=== PATIENT | male | born 1935 | race African-American/Black ===

== ENCOUNTER 2017-06-08 07:36 | Observation (INO) | payer OTHER ==
[2017-06-08] MEDS ORDERED: SODIUM CHLORIDE 500 ML IV STA ×2 (08:07→09:06)
--- NOTE | 2017-06-08 08:21 | PDOC ---
History of Present Illness - General Chief Complaint: Blood Pressure Problem Stated Complaint: LOW BLOOD PRESSURE/VOMITING X2 DAYS Time Seen by Provider: 06/08/17 07:46 History Source: Patient - History of Present Illness Timing/Duration: other (yesterday) Associated Symptoms: reports: nausea/vomiting. denies: chest pain, diaphoresis , fever/chills, headaches, shortness of breath, weakness Past History - Past Medical History Allergies/Adverse Reactions: Allergies Allergy/AdvReac Type Severity Reaction Status Date / Time No Known Allergies Allergy Verified 06/08/17 07:49 Home Medications: Ambulatory Orders Aspirin Coated [Ecotrin -] 81 mg PO DAILY #0 tablet.ec 06/11/11 Atorvastatin Ca [Lipitor] 20 mg PO DAILY #0 tablet 06/11/11 Cholecalciferol (Vitamin D3) [Vitamin D -] 1,000 units PO DAILY #0 tablet Cyanocobalamin [Vitamin B12 -] 1,000 mcg PO DAILY #0 tablet 06/11/11 Metoprolol Succinate [Toprol XL -] 25 mg PO DAILY 08/29/11 Clopidogrel Bisulfate [Plavix -] 75 mg PO DAILY 10/03/14 Ferrous Sulfate [Feosol] 325 mg PO DAILY 10/03/14 Levothyroxine [Synthroid -] 137 mcg PO DAILY 10/03/14 Amlodipine Besylate [Norvasc -] 2.5 mg PO DAILY 05/29/15 Ascorbic Acid [Vitamin C] 500 mg PO DAILY 05/29/15 Ranitidine [Zantac -] 150 mg PO DAILY 05/30/15 Anemia: Yes Asthma: No Cancer: Yes (larynx, esophageal in remission, removal of voice box) Cardiac Disorders: Yes (cardiac stent, cad) CVA: No COPD: No Dementia: No Diabetes: Yes (niddm) Dialysis: No GI Disorders: Yes (gerd, diverticulosis,colonic polyps) Disorders: No HTN: Yes Hypercholesterolemia: Yes Kidney Stones: No Liver Disease: No Seizures: No Thyroid Disease: Yes (hypothyroid) - Surgical History Abdominal Surgery: No Appendectomy: Yes Cardiac Surgery: Yes Cholecystectomy: No Lung Surgery: No Neurologic Surgery: No Orthopedic Surgery: No - Immunization History Immunization Up to Date: Yes - Suicide/Smoking/Psychosocial Hx Smoking Status: Yes Smoking History: Never smoked Years of Tobacco Use: 30 Have you smoked in the past 12 months: No Number of Cigarettes Smoked Daily: 0 If you are a former smoker, when did you quit?: 1998 Cigars Per Day: 0 Information on smoking cessation initiated: No Hx Alcohol Use: No Drug/Substance Use Hx: No Substance Use Type: None Hx Substance Use Treatment: No Review of Systems - Review of Systems Constitutional: No: Chills, Fever Respiratory: No: Cough, Shortness of Breath Cardiac (ROS): Yes: Lightheadedness. No: Chest Pain, Palpitations, Syncope ABD/GI: Yes: Nausea, Vomiting. No: Blood Streaked Bowels, Constipated, Diarrhea , Rectal Bleeding, Abdominal cramping, Tarry Stools : No: Dysuria Neurological: No: Headache *Physical Exam - Vital Signs Last Vital Signs Temp Pulse Resp BP Pulse Ox 98.8 F 89 18 91/77 98 06/08/17 07:46 06/08/17 07:46 06/08/17 07:46 06/08/17 07:46 06/08/17 07:52 - Physical Exam General Appearance: Yes: Appropriately Dressed. No: Apparent Distress HEENT: positive: Other (speaks w/ voice box) Neck: positive: Supple Respiratory/Chest: positive: Lungs Clear, Normal Breath Sounds. negative: Respiratory Distress Cardiovascular: positive: Regular Rate, S1, S2 Gastrointestinal/Abdominal: positive: Soft. negative: Tender Musculoskeletal: negative: CVA Tenderness Integumentary: positive: Dry, Warm Neurologic: positive: Fully Oriented, Alert, Normal Mood/Affect ED Treatment Course - LABORATORY CBC & Chemistry Diagram: 06/08/17 08:10 06/08/17 08:10 Medical Decision Making - Medical Decision Making 06/08/17 08:11 81-year-old male history of laryngeal cancer (in remission, still stoma breathing), HTN, HLD, DM, coronary artery disease, hypothyroid, anemia, GI bleed with negative radionucleotide GI bleed scan in 2011, here nausea, vomiting. Patient states he had 2 episodes of non-bloody, non-bilious vomitus last night. Collins dizzy this am and called 911. No diarrhea, BRBPR, melena, abdominal pain, fever or chills. Denies CP, SOB, diaphoresis, WONG, blurry vision or focal weakness. Patient states he has no teeth and does not wear dentures so baseline diet is soft foods only. Pt states he thinks he " swallowed too much food" last night and thinks that's what's causing his sxs. See exam Hypotension in setting of n/v R/o cardiac vs GI vs infectious vs metabolic, unlikely neuro BP 90/70s in ED, stable otherwise and well ashleigh w/ clear chest/lungs and benign abd -IVF -ekg -labs -reassess 06/08/17 11:38 Labs unremarkable except for leukopenia to 1.9 (last wbc on record here was 2.9 in 2014). No fevers. Blood pressure improved to 104/90 with fluids. Pt continues to appear well w/ benign abd on rpt exam. Will contact PMD and admit at this time as discussed with ED attending 06/08/17 11:42 Case d/w Dr Collins who is covering for Dr. Perry and patient admitted to observation as discussed with José Luis *DC/Admit/Observation/Transfer Diagnosis at time of Disposition: Nausea & vomiting Qualifiers: Vomiting type: unspecified Vomiting Intractability: non-intractable Qualified Code(s): R11.2 - Nausea with vomiting, unspecified Hypotension Qualifiers: Hypotension type: unspecified hypotension type Qualified Code(s): I95.9 - Hypotension, unspecified - Discharge Dispostion Condition at time of disposition: Fair Admit: Yes - Referrals - Patient Instructions - Post Discharge Activity
[2017-06-08 08:22] LABS: BASO % 0.8 % (0-2.0); EOS % 0.4 % (0-4.5); HEMATOCRIT 39.9 % (35.4-49); HEMOGLOBIN 13.2 GM/dL (11.7-16.9); LYMPH % 11.3 % (8-40); MCH 32.8 pg (25.7-33.7); MCHC 33.2 g/dl (32.0-35.9); MEAN CELL VOLUME 98.7 fl (80-96); MONO % 15.2 % (3.8-10.2); NEUT % 72.3 % (42.8-82.8); PLATELET COUNT 99 K/MM3 (134-434); RBC 4.04 M/mm3 (4.00-5.60); RDW 14.8 % (11.9-15.9)
[2017-06-08 08:27] LABS: WHITE BLOOD COUNT 1.9 K/mm3 (4.0-10.0)
[2017-06-08 08:56] LABS: ANION GAP 9 (8-16); BLOOD UREA NITROGEN 15 mg/dL (7-18); CALCIUM 7.9 mg/dL (8.5-10.1); CHLORIDE 105 mmol/L (98-107); CO2 27 mmol/L (21-32); CREATININE 1.1 mg/dL (0.7-1.3); GLUCOSE,RANDOM 101 mg/dL (74-106); LIPASE 42 U/L (73-393); POTASSIUM 4.4 mmol/L (3.5-5.1); SGOT/AST 25 U/L (15-37); SGPT/ALT 15 U/L (12-78); SODIUM 141 mmol/L (136-145)
[2017-06-08 09:00] LABS: ALK PHOS 92 U/L (45-117); BILIRUBIN,TOTAL 0.7 mg/dL (0.2-1.0); TOT PROT 6.1 g/dl (6.4-8.2)
[2017-06-08 09:23] LABS: URINE APPEARANCE CLEAR; URINE BILIRUBIN NEGATIVE (NEGATIVE); URINE BLOOD NEGATIVE (NEGATIVE); URINE COLOR YELLOW; URINE GLUCOSE (UA) NEGATIVE (NEGATIVE); URINE KETONE NEGATIVE (NEGATIVE); URINE LEUK ESTERASE NEGATIVE (NEGATIVE); URINE NITRITE NEGATIVE (NEGATIVE); URINE PROTEIN NEGATIVE (NEGATIVE)
--- NOTE | 2017-06-08 11:03 | EKG ---
Test Reason : Blood Pressure : / mmHG Vent. Rate : 072 BPM Atrial Rate : 072 BPM P-R Int : 184 ms QRS Dur : 074 ms QT Int : 374 ms P-R-T Axes : 082 076 077 degrees QTc Int : 409 ms SINUS RHYTHM WITH OCCASIONAL PREMATURE VENTRICULAR COMPLEXES POSSIBLE ANTERIOR INFARCT (CITED ON OR BEFORE 22-OCT-2005) ABNORMAL ECG WHEN COMPARED WITH ECG OF 03-OCT-2014 09:28, PREMATURE VENTRICULAR COMPLEXES ARE NOW PRESENT Confirmed by KIZZY DE LA ROSA MD ([id number]) on 06/08/2017 11:03:07 AM Referred By: Confirmed By:KIZZY DE LA ROSA MD
[2017-06-08] MEDS ORDERED: ACETAMINOPHEN 325 MG TABLET (FP) PO PRN (12:37)
[2017-06-08] MEDS ORDERED: ONDANSETRON 4 MG/2 ML VIAL IVPUSH PRN (12:37)
--- NOTE | 2017-06-08 12:41 | HP ---
Admitting History and Physical - Primary Care Physician PCP: Kevin Perry - Admission Chief Complaint: I was throwing up History of Present Illness: Mr Morrison is a very pleasant 81 year old male who comes in after three episodes of throwing up. He says it started yesterday. He was forcing himself and stated he ate a lot. After that he started having nausea and vomiting. He says he threw up 3 times. The first 2 times was a lot, and the 3rd minimal. He cannot tell me if there was blood or if it was bilious as he said he did not look. After having these episodes he became lightheaded after standing up. Because of this lightheadedness he came in. He denies sick contacts, fevers, chills, passing out, cough, chest pain, shortness of breath, abdominal pain, diarrhea, constipation, difficulty or pain on urination, or swelling. He says the nausea/ vomiting has resolved and he is hungry. He says he feels normal lying down but has not tried to stand up. History Source: Patient Limitations to Obtaining History: No Limitations - Past Medical History Cardiovascular: Yes: CAD, HTN, Hyperlipdemia, Other (carotid artery stenosis) Heme/Onc: Yes: Cancer Endocrine: Yes: Hypothyroidism - Past Surgical History Past Surgical History: Yes: Carotid Endarterectomy, Stent Additional Past Surgical History: Laryngectomy - Smoking History Smoking history: Never smoked Have you smoked in the past 12 months: No Aproximately how many cigarettes per day: 0 If you are a former smoker, when did you quit?: 1998 - Alcohol/Substance Use Hx Alcohol Use: No History of Substance Use: reports: None - Social History ADL: Independent History of Recent Travel: No Home Medications - Allergies Allergies/Adverse Reactions: Allergies Allergy/AdvReac Type Severity Reaction Status Date / Time No Known Allergies Allergy Verified 06/08/17 07:49 - Home Medications Home Medications: Ambulatory Orders Aspirin Coated [Ecotrin -] 81 mg PO DAILY #0 tablet.ec 06/11/11 Atorvastatin Ca [Lipitor] 20 mg PO DAILY #0 tablet 06/11/11 Cholecalciferol (Vitamin D3) [Vitamin D -] 1,000 units PO DAILY #0 tablet Cyanocobalamin [Vitamin B12 -] 1,000 mcg PO DAILY #0 tablet 06/11/11 Metoprolol Succinate [Toprol XL -] 25 mg PO DAILY 08/29/11 Clopidogrel Bisulfate [Plavix -] 75 mg PO DAILY 10/03/14 Ferrous Sulfate [Feosol] 325 mg PO DAILY 10/03/14 Levothyroxine [Synthroid -] 137 mcg PO DAILY 10/03/14 Amlodipine Besylate [Norvasc -] 2.5 mg PO DAILY 05/29/15 Ascorbic Acid [Vitamin C] 500 mg PO DAILY 05/29/15 Ranitidine [Zantac -] 150 mg PO DAILY 05/30/15 Family Disease History - Family Disease History Family Disease History: Diabetes: Brother, Sister Review of Systems Findings/Remarks: Full review of systems obtained, as per HPI and otherwise negative Physical Examination Vital Signs: Vital Signs Temperature 36.9 C 06/08/17 10:42 Pulse Rate 81 06/08/17 12:07 Respiratory Rate 18 06/08/17 12:07 Blood Pressure 95/70 06/08/17 12:07 O2 Sat by Pulse Oximetry (%) 99 06/08/17 12:07 Constitutional: Yes: Well Nourished, No Distress, Calm Eyes: Yes: Conjunctiva Clear, EOM Intact HENT: Yes: Atraumatic, Normocephalic Neck: Yes: Other (stoma in place c/d/i) Cardiovascular: Yes: Regular Rate and Rhythm. No: Gallop, Murmur, Rub Respiratory: Yes: Regular, CTA Bilaterally. No: Rales, Rhonchi, Wheezes Gastrointestinal: Yes: Normal Bowel Sounds, Soft. No: Distention, Tenderness Extremities: Yes: WNL Edema: No Integumentary: Yes: Tenting Labs: CBC, BMP 06/08/17 08:10 06/08/17 08:10 Imaging - Results Chest X-ray: Report Reviewed, Image Reviewed Problem List - Problems (1) Nausea & vomiting Assessment/Plan: -suspect secondary to diet -now resolved -trial on soft diet (patient without teeth) Code(s): R11.2 - NAUSEA WITH VOMITING, UNSPECIFIED Qualifiers: Vomiting type: unspecified Vomiting Intractability: non-intractable Qualified Code(s): R11.2 - Nausea with vomiting, unspecified (2) Near syncope Assessment/Plan: -secondary to dehydration -IVF -encourage po intake Code(s): R55 - SYNCOPE AND COLLAPSE (3) Hypotension Assessment/Plan: -secondary to dehydration -IVF -orthostatic vital signs -fall risk precautions -PT consult -hold amlodipine and toprol xl Code(s): I95.9 - HYPOTENSION, UNSPECIFIED Qualifiers: Hypotension type: unspecified hypotension type Qualified Code(s): I95.9 - Hypotension, unspecified (4) CAD (coronary artery disease) Assessment/Plan: -continue aspirin, plavix, and lipitor -hold toprol xl currently until blood pressure improves Code(s): I25.10 - ATHSCL HEART DISEASE OF [place] CORONARY ARTERY W/O ANG PCTRS (5) HLD (hyperlipidemia) Assessment/Plan: -continue lipitor Code(s): E78.5 - HYPERLIPIDEMIA, UNSPECIFIED (6) HTN (hypertension) Assessment/Plan: -currently hypotensive secondary to dehydration -hold amlodipine and toprol xl -monitor, restart if can tolerate Code(s): I10 - ESSENTIAL (PRIMARY) HYPERTENSION (7) Hypothyroidism (acquired) Code(s): E03.9 - HYPOTHYROIDISM, UNSPECIFIED (8) Neutropenia Assessment/Plan: -mild per absolute neutrophil count -chronic, but slightly lower from outpatient -recheck in am Code(s): D70.9 - NEUTROPENIA, UNSPECIFIED
[2017-06-08] MEDS ORDERED: SODIUM CHLORIDE 1,000 ML IV SCH (12:45)
[2017-06-08 17:15] VITALS: BMI 19.6
[2017-06-08] MEDS ORDERED: ATORVASTATIN CA 20 MG TABLET (FP) PO SCH (22:00)
[2017-06-09] MEDS ORDERED: LEVOTHYROXINE NA 125 MCG TABLET (FP) ONE (06:04)
[2017-06-09] MEDS ORDERED: LEVOTHYROXINE NA 25 MCG TABLET (FP) ONE (06:04)
[2017-06-09] MEDS ORDERED: LEVOTHYROXINE PO SCH (07:00)
[2017-06-09 08:14] LABS: HEMATOCRIT 36.5 % (35.4-49); HEMOGLOBIN 12.2 GM/dL (11.7-16.9); MCHC 33.5 g/dl (32.0-35.9); MEAN CELL VOLUME 98.7 fl (80-96); MEAN PLT VOLUME 9.2 fl (7.5-11.1); PLATELET COUNT 98 K/MM3 (134-434); RDW 14.5 % (11.9-15.9)
[2017-06-09 08:34] LABS: ANION GAP 8 (8-16); BLOOD UREA NITROGEN 11 mg/dL (7-18); CHLORIDE 108 mmol/L (98-107); CO2 27 mmol/L (21-32); CREATININE 0.9 mg/dL (0.7-1.3); GLUCOSE,RANDOM 92 mg/dL (74-106); MAGNESIUM 1.8 mg/dL (1.8-2.4); PHOSPHOROUS 2.5 mg/dL (2.5-4.9); POTASSIUM 4.4 mmol/L (3.5-5.1); SODIUM 143 mmol/L (136-145)
[2017-06-09 08:41] LABS: WHITE BLOOD COUNT 1.9 K/mm3 (4.0-10.0)
[2017-06-09] MEDS ORDERED: CHOLECALCIFEROL (VITAMIN D3) 400 UNIT TABLET (FP) PO SCH (10:00)
[2017-06-09] MEDS ORDERED: FERROUS SO4 325 MG TABLET (FP) PO SCH (10:00)
[2017-06-09] MEDS ORDERED: LEVOTHYROXINE NA 125 MCG TABLET (FP) PO SCH (10:00)
[2017-06-09] MEDS ORDERED: RANITIDINE HCL 150 MG TABLET (FP) PO SCH (10:00)
[2017-06-09] MEDS ORDERED: CYANOCOBALAMIN 1,000 MCG TABLET (FP) PO SCH (10:00)
[2017-06-09] MEDS ORDERED: CLOPIDOGREL BISULFATE 75 MG TABLET (FP) PO SCH (10:00)
[2017-06-09] MEDS ORDERED: ASCORBIC ACID 500 MG TABLET (FP) PO SCH (10:00)
[2017-06-09] MEDS ORDERED: ASPIRIN COATED 81 MG TABLET.EC PO SCH (10:00)
[2017-06-09 11:15] LABS: ACANTHOCYTES 0; ANISOCYTOSIS 0; HELMET CELLS 0; HOWELL-JOLLY BODIES 0; MACROCYTOSIS 0; OVALOCYTE 0; PLATELET ESTIMATE DECREASED; ROULEAU 0; SICKELED CELLS 0; TARGET CELLS 0; TEAR DROP CELLS 0; TOXIC GRANULATION 0
--- NOTE | 2017-06-09 12:09 | DS ---
Physical Examination Vital Signs: Vital Signs Temperature 37.4 C 06/09/17 06:00 Pulse Rate 85 06/09/17 06:00 Respiratory Rate 18 06/09/17 06:00 Blood Pressure 137/72 06/09/17 06:00 O2 Sat by Pulse Oximetry (%) 97 06/09/17 05:00 Constitutional: Yes: Well Nourished, No Distress, Calm Cardiovascular: Yes: Regular Rate and Rhythm. No: Gallop, Murmur, Rub Respiratory: Yes: Regular, CTA Bilaterally. No: Rales, Rhonchi, Wheezes Gastrointestinal: Yes: Normal Bowel Sounds, Soft. No: Distention, Tenderness Extremities: Yes: WNL Edema: No Labs: CBC, BMP 06/09/17 07:15 06/09/17 07:15 Discharge Summary Reason For Visit: NAUSEA AND VOMITING Current Active Problems Hypotension (Acute) Nausea & vomiting (Acute) Neutropenia (Acute) Hospital Course: (1) Nausea & vomiting Code(s): R11.2 - NAUSEA WITH VOMITING, UNSPECIFIED Qualifiers: Vomiting type: unspecified Vomiting Intractability: non-intractable Qualified Code(s): R11.2 - Nausea with vomiting, unspecified (2) Near syncope Code(s): R55 - SYNCOPE AND COLLAPSE (3) Hypotension Code(s): I95.9 - HYPOTENSION, UNSPECIFIED Qualifiers: Hypotension type: unspecified hypotension type Qualified Code(s): I95.9 - Hypotension, unspecified (4) CAD (coronary artery disease) Code(s): I25.10 - ATHSCL HEART DISEASE OF [place] CORONARY ARTERY W/O ANG PCTRS (5) HLD (hyperlipidemia) Code(s): E78.5 - HYPERLIPIDEMIA, UNSPECIFIED (6) HTN (hypertension) Code(s): I10 - ESSENTIAL (PRIMARY) HYPERTENSION (7) Hypothyroidism (acquired) Code(s): E03.9 - HYPOTHYROIDISM, UNSPECIFIED (8) Neutropenia Code(s): D70.9 - NEUTROPENIA, UNSPECIFIED Mr Morrison is a very pleasant 81 year old gentleman who came in with dehydration and hypotension secondary to nausea and vomiting. He was admitted to the hospital under observation. He was hydrated with IVF for 24 hours. His symptoms completely resolved. His blood pressure normalized and his orthostatic vital signs are negative after hydration. He is walking without difficulty, no need for PT prior to discharge. His neutropenia remains unchanged. He is safe for discharge home with follow up with Dr Perry. Condition: Good - Instructions Diet, Activity, Other Instructions: resume previous diet and activity Referrals: Kevin Perry MD [Staff Physician] - Disposition: HOME - Home Medications Comprehensive Discharge Medication List: Ambulatory Orders Aspirin Coated [Ecotrin -] 81 mg PO DAILY #0 tablet.ec 06/11/11 Atorvastatin Ca [Lipitor] 20 mg PO DAILY #0 tablet 06/11/11 Cholecalciferol (Vitamin D3) [Vitamin D -] 1,000 units PO DAILY #0 tablet Cyanocobalamin [Vitamin B12 -] 1,000 mcg PO DAILY #0 tablet 06/11/11 Metoprolol Succinate [Toprol XL -] 25 mg PO DAILY 08/29/11 Clopidogrel Bisulfate [Plavix -] 75 mg PO DAILY 10/03/14 Ferrous Sulfate [Feosol] 325 mg PO DAILY 10/03/14 Levothyroxine [Synthroid -] 137 mcg PO DAILY 10/03/14 Amlodipine Besylate [Norvasc -] 2.5 mg PO DAILY 05/29/15 Ascorbic Acid [Vitamin C] 500 mg PO DAILY 05/29/15 Ranitidine [Zantac -] 150 mg PO DAILY 05/30/15
[2017-06-09 13:38] VITALS: BP 125/75; PULSE 80; TEMP 98
== END 2017-06-09 13:43 | disposition home or self-care (01) ==
LOC: JER 07:36 → JERBED 11:42 → J5S 21:27
PROVIDERS: ADMIT Internal Medicine; ATTEND Internal Medicine
PROC: 3E0337Z Introduction of Electrolytic and Water Balance Substance into Peripheral Vein, Percutaneous Approach (ICD-10-PCS; principal; 2017-06-08)
PROC: 3E033GC Introduction of Other Therapeutic Substance into Peripheral Vein, Percutaneous Approach (ICD-10-PCS; 2017-06-08)
DX: R11.2 Nausea with vomiting, unspecified (principal); R55 Syncope and collapse; I95.9 Hypotension, unspecified; I10 Essential (primary) hypertension; I25.10 Atherosclerotic heart disease of native coronary artery without angina pectoris; E78.5 Hyperlipidemia, unspecified; E11.9 Type 2 diabetes mellitus without complications; E03.9 Hypothyroidism, unspecified; K21.9 Gastro-esophageal reflux disease without esophagitis; D64.9 Anemia, unspecified; D70.9 Neutropenia, unspecified; Z85.21 Personal history of malignant neoplasm of larynx; Z85.01 Personal history of malignant neoplasm of esophagus; Z90.02 Acquired absence of larynx; Z95.5 Presence of coronary angioplasty implant and graft; Z79.01 Long term (current) use of anticoagulants
CPT/HCPCS: 36415; 71045-TC-FY; 80048; 80053; 81003; 82550; 82553; 83605; 83690; 83735; 84100; 84484; 85025; 93005; 93010; 96360; 96361; 97116-GP; 97161-GP; 99284-25; G0378; J7030

== ENCOUNTER 2021-10-31 07:09 | Inpatient (IN) | payer OTHER ==
[2021-10-31 07:50] VITALS: BMI 18.6
[2021-10-31] MEDS ORDERED: SODIUM CHLORIDE 0.9% 500 ML INFUS.BAG IV ONE (08:17)
[2021-10-31 08:44] LABS: HEMATOCRIT 18.9 % (35.4-49); MCH 33.2 pg (25.7-33.7); MCHC 33.3 g/dl (32.0-35.9); MEAN CELL VOLUME 99.5 fl (80-96); MEAN PLT VOLUME 9.2 fl (7.5-11.1); PLATELET COUNT 101 10^3/uL (134-434); RDW 33.3 % (11.9-15.9)
[2021-10-31 08:46] LABS: WHITE BLOOD COUNT 1.9 K/mm3 (4.0-10.0)
[2021-10-31 08:47] LABS: HEMOGLOBIN 6.3 GM/dL (11.7-16.9)
[2021-10-31 09:14] LABS: ALBUMIN 2.7 g/dl (3.4-5.0); BLOOD UREA NITROGEN 35.2 mg/dL (7-18); CALCIUM 8.1 mg/dL (8.5-10.1)
[2021-10-31 09:17] LABS: CREATININE 1.3 mg/dL (0.55-1.3)
[2021-10-31 09:18] LABS: BILIRUBIN,TOTAL 0.7 mg/dL (0.2-1); TOT PROT 5.3 g/dl (6.4-8.2)
[2021-10-31 09:51] LABS: ANISOCYTOSIS 1+; MACROCYTOSIS 1+; PLATELET ESTIMATE DECREASED
[2021-10-31] MEDS ORDERED: LEVOTHYROXINE SODIUM 100 MCG VIAL IVPUSH SCH (13:30)
[2021-10-31] MEDS: POLYETHYLENE GLYCOL (HEALTHYLAX) 3350 17 GM PACKET PO SCH (21:44)
[2021-10-31] MEDS: ATORVASTATIN CA 20 MG TABLET (FP) PO SCH (21:44)
[2021-10-31] MEDS ORDERED: SODIUM CHLORIDE 1,000 ML IV SCH (21:45)
[2021-10-31] MEDS ORDERED: SODIUM CHLORIDE 500 ML IV STA (22:17)
[2021-10-31 22:51] LABS: HEMATOCRIT 17.2 % (35.4-49); MCH 32.8 pg (25.7-33.7); MCHC 34.8 g/dl (32.0-35.9); MEAN CELL VOLUME 94.4 fl (80-96); MEAN PLT VOLUME 8.9 fl (7.5-11.1); PLATELET COUNT 93 10^3/uL (134-434); RBC 1.82 M/mm3 (4.00-5.60); RDW 30.1 % (11.9-15.9); WHITE BLOOD COUNT 2.4 K/mm3 (4.0-10.0)
[2021-10-31 23:18] LABS: EPI CELLS 5 /uL (0-25.1); HYALINE CASTS 4 /uL (0-3.1); PH,URINE 6.5 (5.0-8.0); URINE APPEARANCE CLOUDY; URINE BACTERIA >9,000 /uL (0-1359); URINE BILIRUBIN NEGATIVE (NEGATIVE); URINE COLOR YELLOW; URINE GLUCOSE (UA) NEGATIVE (NEGATIVE); URINE KETONE NEGATIVE (NEGATIVE); URINE LEUK ESTERASE 3+ (NEGATIVE); URINE NITRITE NEGATIVE (NEGATIVE); URINE PROTEIN NEGATIVE (NEGATIVE); URINE RBC 12 /uL (0-23.9); URINE WBC 791 /uL (0-25.8)
[2021-10-31] MEDS: SODIUM CHLORIDE 1,000 ML IV SCH (23:28)
[2021-11-01] MEDS ORDERED: LEVOTHYROXINE NA 200 MCG TABLET PO SCH (07:00)
[2021-11-01] MEDS ORDERED: SODIUM CHLORIDE 0.9% 500 ML INFUS.BAG IV ONE (08:39)
[2021-11-01 08:52] LABS: BASO % 0.4 % (0-2.0); EOS % 0.4 % (0-4.5); HEMATOCRIT 20.5 % (35.4-49); LYMPH % 19.6 % (8-40); MCH 31.9 pg (25.7-33.7); MCHC 34.3 g/dl (32.0-35.9); MEAN PLT VOLUME 9.3 fl (7.5-11.1); MONO % 13.7 % (3.8-10.2); NEUT % 65.9 % (42.8-82.8); PLATELET COUNT 92 10^3/uL (134-434); RDW 26.8 % (11.9-15.9); WHITE BLOOD COUNT 2.8 K/mm3 (4.0-10.0)
[2021-11-01 09:20] LABS: ALBUMIN 2.3 g/dl (3.4-5.0); BLOOD UREA NITROGEN 34.9 mg/dL (7-18); CALCIUM 7.8 mg/dL (8.5-10.1)
[2021-11-01 09:23] LABS: PHOSPHOROUS 2.4 mg/dL (2.5-4.9)
[2021-11-01 09:24] LABS: BILIRUBIN,TOTAL 1.4 mg/dL (0.2-1)
[2021-11-01 09:25] LABS: TOT PROT 4.7 g/dl (6.4-8.2)
[2021-11-01] MEDS ORDERED: metoPROLOL SUCCINATE 25 MG TAB.SR.24H (FP) PO SCH (10:00)
[2021-11-01 11:37] LABS: ANISOCYTOSIS 1+; MACROCYTOSIS 1+; PLATELET ESTIMATE DECREASED
[2021-11-01] MEDS: POLYETHYLENE GLYCOL (HEALTHYLAX) 3350 17 GM PACKET PO SCH ×2 (13:54→21:58)
[2021-11-01] MEDS: CEFTRIAXONE 1 GM in DEXTROSE 5%-WATER - 50 ML IVPB SCH (14:25)
[2021-11-01 14:33] LABS: BILIRUBIN,DIRECT 0.5 mg/dL (0.0-0.2)
[2021-11-01 15:15] LABS: INR 1.59 (0.83-1.09); PROTHROMBIN TIME (PATIENT) 18.4 SEC (9.7-13.0)
[2021-11-01 16:31] LABS: HIV INTERPRETATION NEGATIVE (NEGATIVE)
[2021-11-01 17:45] LABS: HEMOGLOBIN 7.3 GM/dL (11.7-16.9); MCH 31.8 pg (25.7-33.7); MEAN CELL VOLUME 90.9 fl (80-96); MEAN PLT VOLUME 9.1 fl (7.5-11.1); PLATELET COUNT 86 10^3/uL (134-434); RBC 2.31 M/mm3 (4.00-5.60); RDW 24.1 % (11.9-15.9); WHITE BLOOD COUNT 2.3 K/mm3 (4.0-10.0)
[2021-11-01] MEDS: ATORVASTATIN CA 20 MG TABLET (FP) PO SCH (21:48)
[2021-11-01] MEDS ORDERED: SODIUM CHLORIDE 1,000 ML IV SCH (22:23)
[2021-11-01] MEDS: SODIUM CHLORIDE 1,000 ML IV SCH (22:44)
[2021-11-02] MEDS: SODIUM CHLORIDE 1,000 ML IV SCH ×2 (03:03→22:03)
[2021-11-02] MEDS ORDERED: LEVOTHYROXINE SODIUM 100 MCG VIAL IVPUSH SCH (07:00)
[2021-11-02] MEDS: CEFTRIAXONE 1 GM in DEXTROSE 5%-WATER - 50 ML IVPB SCH (10:08)
[2021-11-02] MEDS: POLYETHYLENE GLYCOL (HEALTHYLAX) 3350 17 GM PACKET PO SCH ×2 (10:10→22:02)
[2021-11-02 10:30] LABS: BLOOD UREA NITROGEN 30.8 mg/dL (7-18); CALCIUM 8.2 mg/dL (8.5-10.1); MAGNESIUM 2.1 mg/dL (1.8-2.4)
[2021-11-02 10:33] LABS: CREATININE 0.9 mg/dL (0.55-1.3); PHOSPHOROUS 2.2 mg/dL (2.5-4.9)
[2021-11-02 10:49] LABS: HEMATOCRIT 27.8 % (35.4-49); HEMOGLOBIN 9.8 GM/dL (11.7-16.9); MCH 31.9 pg (25.7-33.7); MCHC 35.2 g/dl (32.0-35.9); MEAN CELL VOLUME 90.5 fl (80-96); MEAN PLT VOLUME 9.4 fl (7.5-11.1); PLATELET COUNT 100 10^3/uL (134-434); RBC 3.08 M/mm3 (4.00-5.60); RDW 23.7 % (11.9-15.9); WHITE BLOOD COUNT 2.8 K/mm3 (4.0-10.0)
[2021-11-02] MEDS: ATORVASTATIN CA 20 MG TABLET (FP) PO SCH (22:02)
[2021-11-03] MEDS: LEVOTHYROXINE NA 125 MCG TABLET (FP) PO SCH (06:04)
[2021-11-03] MEDS: POLYETHYLENE GLYCOL (HEALTHYLAX) 3350 17 GM PACKET PO SCH ×2 (10:28→21:09)
[2021-11-03] MEDS: metoPROLOL SUCCINATE 25 MG TAB.SR.24H (FP) PO SCH (10:29)
[2021-11-03] MEDS: MULTIVITAMINS (DAILY MVI) TABLET (FP) PO SCH (10:29)
[2021-11-03] MEDS: CEFTRIAXONE 1 GM in DEXTROSE 5%-WATER - 50 ML IVPB SCH (10:29)
[2021-11-03] MEDS: amLODIPine BESYLATE 2.5 MG TABLET (FP) PO SCH (10:31)
[2021-11-03] MEDS: FUROSEMIDE 40 MG TABLET (FP) PO SCH (10:31)
[2021-11-03] MEDS: SODIUM CHLORIDE 1,000 ML IV SCH (13:54)
[2021-11-03 14:58] LABS: HEMATOCRIT 25.2 % (35.4-49); HEMOGLOBIN 8.6 GM/dL (11.7-16.9); MCH 31.7 pg (25.7-33.7); MCHC 34.2 g/dl (32.0-35.9); MEAN CELL VOLUME 92.7 fl (80-96); MEAN PLT VOLUME 8.9 fl (7.5-11.1); PLATELET COUNT 92 10^3/uL (134-434); RBC 2.72 M/mm3 (4.00-5.60); RDW 23.1 % (11.9-15.9)
[2021-11-03 15:17] LABS: CALCIUM 7.9 mg/dL (8.5-10.1)
[2021-11-03 15:18] LABS: ALBUMIN 2.4 g/dl (3.4-5.0); BLOOD UREA NITROGEN 25.1 mg/dL (7-18); MAGNESIUM 2.1 mg/dL (1.8-2.4)
[2021-11-03 15:21] LABS: CREATININE 0.9 mg/dL (0.55-1.3); PHOSPHOROUS 2.6 mg/dL (2.5-4.9)
[2021-11-03 15:22] LABS: BILIRUBIN,TOTAL 0.6 mg/dL (0.2-1)
[2021-11-03 16:36] LABS: ANISOCYTOSIS 1+; MACROCYTOSIS 1+; PLATELET ESTIMATE NORMAL
[2021-11-03] MEDS: ATORVASTATIN CA 20 MG TABLET (FP) PO SCH (21:09)
[2021-11-03] MEDS ORDERED: APIXABAN 2.5 MG TABLET PO SCH (22:00)
[2021-11-04] MEDS: LEVOTHYROXINE NA 125 MCG TABLET (FP) PO SCH (06:07)
[2021-11-04] MEDS ORDERED: LEVOTHYROXINE NA 100 MCG TABLET (FP) PO SCH (07:00)
[2021-11-04 07:32] LABS: HEMATOCRIT 25.6 % (35.4-49); HEMOGLOBIN 8.8 GM/dL (11.7-16.9); MCH 31.7 pg (25.7-33.7); MCHC 34.3 g/dl (32.0-35.9); MEAN CELL VOLUME 92.6 fl (80-96); MEAN PLT VOLUME 9.6 fl (7.5-11.1); PLATELET COUNT 88 10^3/uL (134-434); RBC 2.76 M/mm3 (4.00-5.60)
[2021-11-04 07:54] LABS: WHITE BLOOD COUNT 1.9 K/mm3 (4.0-10.0)
[2021-11-04 08:01] LABS: BLOOD UREA NITROGEN 22.6 mg/dL (7-18)
[2021-11-04 08:04] LABS: CREATININE 0.9 mg/dL (0.55-1.3)
[2021-11-04 09:14] LABS: ANISOCYTOSIS 0; MACROCYTOSIS 1+; OVALOCYTE 1+
[2021-11-04] MEDS: CEFTRIAXONE 1 GM in DEXTROSE 5%-WATER - 50 ML IVPB SCH (09:46)
[2021-11-04] MEDS: POLYETHYLENE GLYCOL (HEALTHYLAX) 3350 17 GM PACKET PO SCH ×2 (09:47→22:15)
[2021-11-04] MEDS: amLODIPine BESYLATE 2.5 MG TABLET (FP) PO SCH (09:47)
[2021-11-04] MEDS: metoPROLOL SUCCINATE 25 MG TAB.SR.24H (FP) PO SCH (09:47)
[2021-11-04] MEDS: MULTIVITAMINS (DAILY MVI) TABLET (FP) PO SCH (09:47)
[2021-11-04] MEDS: FUROSEMIDE 40 MG TABLET (FP) PO SCH (09:47)
[2021-11-04] MEDS: APIXABAN 2.5 MG TABLET PO SCH ×2 (13:28→22:15)
[2021-11-04] MEDS: ATORVASTATIN CA 20 MG TABLET (FP) PO SCH (22:15)
[2021-11-05] MEDS: LEVOTHYROXINE NA 125 MCG TABLET (FP) PO SCH (06:05)
[2021-11-05] MEDS: MULTIVITAMINS (DAILY MVI) TABLET (FP) PO SCH (09:26)
[2021-11-05] MEDS: FUROSEMIDE 40 MG TABLET (FP) PO SCH (09:26)
[2021-11-05] MEDS: amLODIPine BESYLATE 2.5 MG TABLET (FP) PO SCH (09:27)
[2021-11-05] MEDS: POLYETHYLENE GLYCOL (HEALTHYLAX) 3350 17 GM PACKET PO SCH ×2 (09:27→22:30)
[2021-11-05] MEDS: APIXABAN 2.5 MG TABLET PO SCH ×2 (09:27→22:30)
[2021-11-05] MEDS: CEFTRIAXONE 1 GM in DEXTROSE 5%-WATER - 50 ML IVPB SCH (09:27)
[2021-11-05 10:00] LABS: ALBUMIN 2.3 g/dl (3.4-5.0); BLOOD UREA NITROGEN 20.6 mg/dL (7-18)
[2021-11-05 10:02] LABS: PHOSPHOROUS 2.5 mg/dL (2.5-4.9)
[2021-11-05 10:03] LABS: BILIRUBIN,TOTAL 0.6 mg/dL (0.2-1); TOT PROT 4.8 g/dl (6.4-8.2)
[2021-11-05] MEDS: metoPROLOL SUCCINATE 25 MG TAB.SR.24H (FP) PO SCH (11:12)
[2021-11-05] MEDS ORDERED: NAPH,MB-DB/K PH,MBDB POWDER PACKET PO ONE (16:25)
[2021-11-05] MEDS: ATORVASTATIN CA 20 MG TABLET (FP) PO SCH (22:30)
[2021-11-06] MEDS: LEVOTHYROXINE NA 125 MCG TABLET (FP) PO SCH (06:33)
[2021-11-06 08:34] LABS: HEMATOCRIT 22.6 % (35.4-49); HEMOGLOBIN 7.7 GM/dL (11.7-16.9); MCH 31.8 pg (25.7-33.7); MCHC 34.1 g/dl (32.0-35.9); MEAN CELL VOLUME 93.1 fl (80-96); PLATELET COUNT 74 10^3/uL (134-434); RBC 2.43 M/mm3 (4.00-5.60); RDW 23.1 % (11.9-15.9)
[2021-11-06 08:52] LABS: ALBUMIN 2.4 g/dl (3.4-5.0); BLOOD UREA NITROGEN 17.5 mg/dL (7-18); MAGNESIUM 1.8 mg/dL (1.8-2.4)
[2021-11-06 08:53] LABS: WHITE BLOOD COUNT 1.5 K/mm3 (4.0-10.0)
[2021-11-06 08:54] LABS: CREATININE 0.9 mg/dL (0.55-1.3); PHOSPHOROUS 2.5 mg/dL (2.5-4.9)
[2021-11-06 08:56] LABS: BILIRUBIN,TOTAL 0.7 mg/dL (0.2-1); TOT PROT 4.9 g/dl (6.4-8.2)
[2021-11-06] MEDS: APIXABAN 2.5 MG TABLET PO SCH ×2 (10:33→22:14)
[2021-11-06] MEDS: MULTIVITAMINS (DAILY MVI) TABLET (FP) PO SCH (10:33)
[2021-11-06] MEDS: amLODIPine BESYLATE 2.5 MG TABLET (FP) PO SCH (10:33)
[2021-11-06] MEDS: CEFTRIAXONE 1 GM in DEXTROSE 5%-WATER - 50 ML IVPB SCH (10:33)
[2021-11-06] MEDS: metoPROLOL SUCCINATE 25 MG TAB.SR.24H (FP) PO SCH (10:34)
[2021-11-06] MEDS: POLYETHYLENE GLYCOL (HEALTHYLAX) 3350 17 GM PACKET PO SCH ×2 (10:35→22:14)
[2021-11-06] MEDS: FUROSEMIDE 40 MG TABLET (FP) PO SCH (10:42)
[2021-11-06] MEDS ORDERED: [UNRECOGNIZED DRUG - OTHER] SQ ONE (15:18)
[2021-11-06] MEDS ORDERED: MAGNESIUM 2GM/50ML STERILE WATER IVPB IVPB ONE ×2 (15:26→16:45)
[2021-11-06] MEDS ORDERED: NAPH,MB-DB/K PH,MBDB POWDER PACKET PO ONE (15:27)
[2021-11-06] MEDS: ATORVASTATIN CA 20 MG TABLET (FP) PO SCH (22:14)
[2021-11-06 22:15] VITALS: RESP 18
[2021-11-07] MEDS: LEVOTHYROXINE NA 125 MCG TABLET (FP) PO SCH (06:28)
[2021-11-07 08:16] LABS: HEMATOCRIT 27.1 % (35.4-49); HEMOGLOBIN 9.4 GM/dL (11.7-16.9); MCH 31.4 pg (25.7-33.7); MCHC 34.6 g/dl (32.0-35.9); MEAN CELL VOLUME 90.6 fl (80-96); MEAN PLT VOLUME 9.8 fl (7.5-11.1); PLATELET COUNT 74 10^3/uL (134-434); RBC 2.99 M/mm3 (4.00-5.60); RDW 22.6 % (11.9-15.9)
[2021-11-07 09:11] LABS: CALCIUM 7.8 mg/dL (8.5-10.1)
[2021-11-07 09:12] LABS: ALBUMIN 2.6 g/dl (3.4-5.0); BLOOD UREA NITROGEN 16.8 mg/dL (7-18); MAGNESIUM 2.2 mg/dL (1.8-2.4)
[2021-11-07 09:14] LABS: CREATININE 0.9 mg/dL (0.55-1.3)
[2021-11-07 09:16] LABS: BILIRUBIN,TOTAL 0.7 mg/dL (0.2-1); TOT PROT 5.4 g/dl (6.4-8.2)
[2021-11-07] MEDS ORDERED: [UNRECOGNIZED DRUG - OTHER] SQ ONE (10:00)
[2021-11-07] MEDS ORDERED: POLYETHYLENE GLYCOL (HEALTHYLAX) 3350 17 GM PACKET PO SCH (10:00)
[2021-11-07 10:01] LABS: WHITE BLOOD COUNT 1.7 K/mm3 (4.0-10.0)
[2021-11-07] MEDS: MULTIVITAMINS (DAILY MVI) TABLET (FP) PO SCH (10:06)
[2021-11-07] MEDS: metoPROLOL SUCCINATE 25 MG TAB.SR.24H (FP) PO SCH (10:06)
[2021-11-07] MEDS: APIXABAN 2.5 MG TABLET PO SCH (10:06)
[2021-11-07] MEDS: CEFTRIAXONE 1 GM in DEXTROSE 5%-WATER - 50 ML IVPB SCH (10:06)
[2021-11-07 15:32] VITALS: BP 94/59; PULSE 60; TEMP 99
[2021-11-07] MEDS ORDERED: ATORVASTATIN CA 20 MG TABLET (FP) PO SCH (22:00)
== END 2021-11-07 17:30 | disposition home or self-care (01) | DRG 809 ==
LOC: JER 07:09 → JERBED 09:41 → OBSVTOIN 11:36 → J5S 15:43 → J4W 11-01 10:49 → J4S 11-01 15:46
PROVIDERS: ADMIT Internal Medicine; ATTEND Internal Medicine
PROC: 30233N1 Transfusion of Nonautologous Red Blood Cells into Peripheral Vein, Percutaneous Approach (ICD-10-PCS; principal; 2021-10-31)
DX: D61.818 Other pancytopenia (principal); I50.32 Chronic diastolic (congestive) heart failure; K92.1 Melena; N39.0 Urinary tract infection, site not specified; R64 Cachexia; Z68.1 Body mass index [BMI] 19.9 or less, adult; D46.9 Myelodysplastic syndrome, unspecified; D50.0 Iron deficiency anemia secondary to blood loss (chronic); J44.9 Chronic obstructive pulmonary disease, unspecified; E03.9 Hypothyroidism, unspecified; K59.00 Constipation, unspecified; I25.10 Atherosclerotic heart disease of native coronary artery without angina pectoris; Z98.61 Coronary angioplasty status; K21.9 Gastro-esophageal reflux disease without esophagitis
CPT/HCPCS: 0241U-QW; 36415; 36430; 70450-TC; 70551-TC; 71045-TC-FY; 72125-TC; 76705-TC; 76870-TC; 80048; 80053; 81003; 82248; 82272; 82550; 82607; 82668; 82728; 82746; 83010; 83540; 83550; 83615; 83735; 84100; 84439; 84443; 84480; 84481; 84484; 85025; 85027; 85045; 85384; 85610; 85651; 86140; 86431; 86705; 86803; 86850; 86880; 86900; 86901; 86922; 87086; 87186; 87340; 87389; 87517; 88300-TC; 90471; 90611; 93005; 93010; 97116-GP; 97161-GP; 99285-25; G0378; P9058

== ENCOUNTER 2021-12-03 12:22 | Inpatient (IN) | payer OTHER ==
[2021-12-03 14:42] LABS: VENOUS O2 SATURATION 20.4 % (70-80); VENOUS PCO2 59.5 mmHg (38-52); VENOUS PH 7.369 (7.310-7.410)
[2021-12-03] MEDS ORDERED: methylPREDNISolone NA SUCC 125 MG/2 ML VIAL IVPUSH ONE (14:51)
[2021-12-03] MEDS ORDERED: MAGNESIUM SULF 50% (8.12 MEQ/2 ML-1 GM VIAL) IVPB ONE (14:51)
[2021-12-03 14:57] LABS: BASO % 0.3 % (0-2.0); HEMATOCRIT 28.5 % (35.4-49); HEMOGLOBIN 9.4 GM/dL (11.7-16.9); MCH 31.1 pg (25.7-33.7); MEAN CELL VOLUME 94.2 fl (80-96); MEAN PLT VOLUME 8.8 fl (7.5-11.1); MONO % 14.4 % (3.8-10.2); NEUT % 77.3 % (42.8-82.8); PLATELET COUNT 113 10^3/uL (134-434); RBC 3.03 M/mm3 (4.00-5.60); WHITE BLOOD COUNT 7.4 K/mm3 (4.0-10.0)
[2021-12-03 15:04] LABS: INR 1.92 (0.83-1.09); PROTHROMBIN TIME (PATIENT) 22.2 SEC (9.7-13.0)
[2021-12-03 15:07] LABS: ACTIVATED PTT 59.7 SECONDS (25.2-36.5)
[2021-12-03 15:20] LABS: CALCIUM 8.4 mg/dL (8.5-10.1)
[2021-12-03 15:21] LABS: BLOOD UREA NITROGEN 24.7 mg/dL (7-18)
[2021-12-03 15:24] LABS: CREATININE 1.4 mg/dL (0.55-1.3)
[2021-12-03 15:25] LABS: BILIRUBIN,TOTAL 1.3 mg/dL (0.2-1); TOT PROT 6.5 g/dl (6.4-8.2)
[2021-12-03 15:26] LABS: ANISOCYTOSIS 2+; MACROCYTOSIS 1+
[2021-12-03] MEDS: ALBUTEROL SO4 2.5/IPRATROPIUM 0.5 INH SOL 3 ML VIAL.NEB. NEB SCH ×2 (15:26→15:32)
[2021-12-03] MEDS ORDERED: methylPREDNISolone NA SUCC 125 MG/2 ML VIAL ONE (15:27)
[2021-12-03] MEDS ORDERED: MAGNESIUM SULFATE IN WATER 2 GM/50 ML IVPB IVPB ONE (15:27)
[2021-12-03 15:28] LABS: N-TERMINAL BNP 5124.7 pg/ml (5-450)
[2021-12-03] MEDS ORDERED: PIPERACILLIN/TAZOB 4.5 GM 4.5 GM in DEXTROSE 5%-WATER 100 ML IVPB ONE (15:36)
[2021-12-03] MEDS ORDERED: VANCOMYCIN 1 GM in D5W (PRE-DOCKED) 1,000 MG/250 ML IVPB ONE (15:36)
[2021-12-03] MEDS ORDERED: FUROSEMIDE 40 MG/4 ML INJECTABLE VIAL IVPUSH ONE (15:36)
[2021-12-03] MEDS ORDERED: VANCOMYCIN/WATER FOR INJ (PEG) 1,000 MG/200 ML BAG IVPB ONE (16:00)
[2021-12-03] MEDS ORDERED: PIPERACILLIN/TAZOB 4.5 GM 4.5 GM/100 ML BAG IVPB ONE (16:00)
[2021-12-03] MEDS ORDERED: FUROSEMIDE 40 MG/4 ML INJECTABLE VIAL ONE (16:01)
[2021-12-03] MEDS ORDERED: ACETAMINOPHEN 1000 MG/100 ML BAG IVPB PRN (19:46)
[2021-12-03] MEDS ORDERED: HEPARIN NA (PORCINE) 5,000 UNITS/ML 1ML VIAL SQ SCH (22:00)
[2021-12-03] MEDS ORDERED: APIXABAN 2.5 MG TABLET ONE (22:23)
[2021-12-03] MEDS: APIXABAN 2.5 MG TABLET PO SCH (22:29)
[2021-12-03 22:51] LABS: URINE APPEARANCE CLEAR; URINE BILIRUBIN NEGATIVE (NEGATIVE); URINE COLOR YELLOW; URINE GLUCOSE (UA) NEGATIVE (NEGATIVE); URINE KETONE NEGATIVE (NEGATIVE); URINE LEUK ESTERASE NEGATIVE (NEGATIVE); URINE NITRITE NEGATIVE (NEGATIVE); URINE PROTEIN NEGATIVE (NEGATIVE); URINE UROBILINOGEN 0.2 mg/dL (0.2-1.0)
[2021-12-03 22:54] LABS: ALLENS TEST POSITIVE; ARTERIAL BLD GAS O2 SATURATION 97.5 % (95-98); ARTERIAL BLOOD GAS BASE EXCESS 5.9 mmol/L (-2-2); ARTERIAL BLOOD GAS PO2 92.4 mmHg (80-100); ARTERIAL BLOOD GAS pH 7.477 (7.350-7.450)
[2021-12-03] MEDS ORDERED: SODIUM CHLORIDE 250 ML IV SCH (23:00)
[2021-12-03] MEDS ORDERED: SODIUM CHLORIDE 250 ML IV STA (23:58)
[2021-12-04] MEDS ORDERED: SODIUM CHLORIDE 1,000 ML IV STA (00:38)
[2021-12-04 01:45] LABS: LACTIC ACID 2.3 mmol/L (0.4-2.0)
[2021-12-04] MEDS ORDERED: SODIUM CHLORIDE 500 ML IV STA (02:11)
[2021-12-04] MEDS: LEVOTHYROXINE NA 125 MCG TABLET (FP) PO SCH (06:48)
[2021-12-04 07:56] LABS: BASO % 0.2 % (0-2.0); HEMATOCRIT 29.2 % (35.4-49); HEMOGLOBIN 9.7 GM/dL (11.7-16.9); LYMPH % 3.8 % (8-40); MCH 31.3 pg (25.7-33.7); MCHC 33.4 g/dl (32.0-35.9); MEAN CELL VOLUME 93.8 fl (80-96); MEAN PLT VOLUME 9.2 fl (7.5-11.1); MONO % 9.3 % (3.8-10.2); NEUT % 86.7 % (42.8-82.8); PLATELET COUNT 91 10^3/uL (134-434); RBC 3.11 M/mm3 (4.00-5.60); RDW 26.6 % (11.9-15.9); WHITE BLOOD COUNT 6.9 K/mm3 (4.0-10.0)
[2021-12-04 08:57] LABS: CALCIUM 8.2 mg/dL (8.5-10.1)
[2021-12-04 08:58] LABS: ALBUMIN 2.6 g/dl (3.4-5.0); BLOOD UREA NITROGEN 26.8 mg/dL (7-18); MAGNESIUM 2.4 mg/dL (1.8-2.4)
[2021-12-04 09:01] LABS: CREATININE 1.2 mg/dL (0.55-1.3); PHOSPHOROUS 3.3 mg/dL (2.5-4.9)
[2021-12-04 09:02] LABS: BILIRUBIN,TOTAL 1.1 mg/dL (0.2-1); TOT PROT 5.9 g/dl (6.4-8.2)
[2021-12-04] MEDS ORDERED: metoPROLOL SUCCINATE 25 MG TAB.SR.24H (FP) PO SCH (10:00)
[2021-12-04] MEDS ORDERED: FUROSEMIDE 40 MG TABLET (FP) PO SCH (10:00)
[2021-12-04] MEDS ORDERED: amLODIPine BESYLATE 2.5 MG TABLET (FP) PO SCH (10:00)
[2021-12-04] MEDS ORDERED: PATIENT'S OWN MEDICATION (NON-FORMULARY) (Mirabegron [Myrbetriq] 25 MG Tab.Er.24h) PO SCH (10:00)
[2021-12-04] MEDS: APIXABAN 2.5 MG TABLET PO SCH ×2 (10:16→21:49)
[2021-12-04] MEDS: FAMOTIDINE 40 MG/5 ML ORAL SUSPENSION PO SCH (12:44)
[2021-12-04] MEDS: FUROSEMIDE 40 MG/4 ML INJECTABLE VIAL IVPUSH SCH (15:18)
[2021-12-04] MEDS: CYANOCOBALAMIN 1,000 MCG TABLET (FP) PO SCH (21:49)
[2021-12-04] MEDS: FERROUS SO4 325 MG TABLET (FP) PO SCH (21:49)
[2021-12-04] MEDS: CHOLECALCIFEROL (VIT D3) 1,000 UNIT (25 MCG) TABLET PO SCH (21:49)
[2021-12-04] MEDS: ASCORBIC ACID 500 MG TABLET (FP) PO SCH (21:49)
[2021-12-04] MEDS: ATORVASTATIN CA 20 MG TABLET (FP) PO SCH (21:49)
[2021-12-04] MEDS ORDERED: LORazepam 2 MG/ML SDV VIAL IM PRN (23:49)
[2021-12-05] MEDS: MELATONIN 5 MG TABLETS PO PRN ×2 (00:10→22:23)
[2021-12-05] MEDS ORDERED: LORazepam 2 MG/ML SDV VIAL IM ONE ×2 (05:30)
[2021-12-05] MEDS: LEVOTHYROXINE NA 125 MCG TABLET (FP) PO SCH (06:51)
[2021-12-05 09:41] LABS: CALCIUM 8.4 mg/dL (8.5-10.1)
[2021-12-05 09:46] LABS: CREATININE 1.3 mg/dL (0.55-1.3)
[2021-12-05 10:09] LABS: BASO % 0.2 % (0-2.0); EOS % 0.1 % (0-4.5); HEMOGLOBIN 8.5 GM/dL (11.7-16.9); LYMPH % 4.4 % (8-40); MCH 31.4 pg (25.7-33.7); MCHC 33.9 g/dl (32.0-35.9); MEAN CELL VOLUME 92.5 fl (80-96); MEAN PLT VOLUME 8.7 fl (7.5-11.1); MONO % 8.3 % (3.8-10.2); PLATELET COUNT 59 10^3/uL (134-434); RBC 2.71 M/mm3 (4.00-5.60); RDW 26.2 % (11.9-15.9)
[2021-12-05] MEDS: CYANOCOBALAMIN 1,000 MCG TABLET (FP) PO SCH ×2 (12:52→22:16)
[2021-12-05] MEDS: FAMOTIDINE 40 MG/5 ML ORAL SUSPENSION PO SCH (12:52)
[2021-12-05] MEDS: ASCORBIC ACID 500 MG TABLET (FP) PO SCH ×2 (12:52→22:16)
[2021-12-05] MEDS: APIXABAN 2.5 MG TABLET PO SCH ×2 (12:52→22:16)
[2021-12-05] MEDS: FERROUS SO4 325 MG TABLET (FP) PO SCH ×2 (12:53→22:16)
[2021-12-05] MEDS: CHOLECALCIFEROL (VIT D3) 1,000 UNIT (25 MCG) TABLET PO SCH ×2 (12:54→22:21)
[2021-12-05] MEDS: FUROSEMIDE 40 MG/4 ML INJECTABLE VIAL IVPUSH SCH (16:03)
[2021-12-05] MEDS ORDERED: QUEtiapine FUMARATE 25 MG TABLET PO SCH (22:00)
[2021-12-05] MEDS: ATORVASTATIN CA 20 MG TABLET (FP) PO SCH (22:16)
[2021-12-06] MEDS: LEVOTHYROXINE NA 125 MCG TABLET (FP) PO SCH (06:35)
[2021-12-06 08:24] LABS: BASO % 0.7 % (0-2.0); EOS % 0.8 % (0-4.5); HEMATOCRIT 28.2 % (35.4-49); HEMOGLOBIN 9.2 GM/dL (11.7-16.9); LYMPH % 9.4 % (8-40); MCH 30.7 pg (25.7-33.7); MCHC 32.7 g/dl (32.0-35.9); MEAN CELL VOLUME 93.9 fl (80-96); MEAN PLT VOLUME 9.6 fl (7.5-11.1); MONO % 11.5 % (3.8-10.2); NEUT % 77.6 % (42.8-82.8); PLATELET COUNT 47 10^3/uL (134-434); RDW 26.9 % (11.9-15.9); WHITE BLOOD COUNT 3.1 K/mm3 (4.0-10.0)
[2021-12-06 08:41] LABS: BLOOD UREA NITROGEN 35.1 mg/dL (7-18); CALCIUM 8.3 mg/dL (8.5-10.1)
[2021-12-06 08:45] LABS: CREATININE 1.1 mg/dL (0.55-1.3)
[2021-12-06 08:56] LABS: PLATELET ESTIMATE DECREASED
[2021-12-06] MEDS: FUROSEMIDE 40 MG/4 ML INJECTABLE VIAL IVPUSH SCH (10:20)
[2021-12-06] MEDS: ASCORBIC ACID 500 MG TABLET (FP) PO SCH ×2 (10:20→22:07)
[2021-12-06] MEDS: FAMOTIDINE 40 MG/5 ML ORAL SUSPENSION PO SCH (10:20)
[2021-12-06] MEDS: CYANOCOBALAMIN 1,000 MCG TABLET (FP) PO SCH ×2 (10:20→22:07)
[2021-12-06] MEDS: FERROUS SO4 325 MG TABLET (FP) PO SCH (10:33)
[2021-12-06] MEDS: CHOLECALCIFEROL (VIT D3) 1,000 UNIT (25 MCG) TABLET PO SCH ×2 (10:33→22:14)
[2021-12-06] MEDS: MELATONIN 5 MG TABLETS PO PRN (22:07)
[2021-12-06] MEDS: ATORVASTATIN CA 20 MG TABLET (FP) PO SCH (22:07)
[2021-12-07] MEDS: LEVOTHYROXINE NA 125 MCG TABLET (FP) PO SCH (06:19)
[2021-12-07 09:14] LABS: BASO % 0.5 % (0-2.0); EOS % 2.3 % (0-4.5); HEMATOCRIT 27.3 % (35.4-49); LYMPH % 22.3 % (8-40); MCH 31.2 pg (25.7-33.7); MCHC 33.1 g/dl (32.0-35.9); MEAN CELL VOLUME 94.3 fl (80-96); MEAN PLT VOLUME 9.7 fl (7.5-11.1); MONO % 14.2 % (3.8-10.2); NEUT % 60.7 % (42.8-82.8); PLATELET COUNT 45 10^3/uL (134-434); RBC 2.89 M/mm3 (4.00-5.60); RDW 26.2 % (11.9-15.9)
[2021-12-07 09:24] LABS: WHITE BLOOD COUNT 1.9 K/mm3 (4.0-10.0)
[2021-12-07 09:46] LABS: BLOOD UREA NITROGEN 23.8 mg/dL (7-18)
[2021-12-07 09:47] LABS: ALBUMIN 2.7 g/dl (3.4-5.0); CALCIUM 8.4 mg/dL (8.5-10.1)
[2021-12-07 09:50] LABS: CREATININE 0.9 mg/dL (0.55-1.3)
[2021-12-07 09:51] LABS: BILIRUBIN,TOTAL 1.1 mg/dL (0.2-1); TOT PROT 5.7 g/dl (6.4-8.2)
[2021-12-07] MEDS: FUROSEMIDE 40 MG/4 ML INJECTABLE VIAL IVPUSH SCH (10:18)
[2021-12-07] MEDS: FAMOTIDINE 40 MG/5 ML ORAL SUSPENSION PO SCH (10:18)
[2021-12-07] MEDS: metoPROLOL SUCCINATE 25 MG TAB.SR.24H (FP) PO SCH (10:19)
[2021-12-07] MEDS: ASCORBIC ACID 500 MG TABLET (FP) PO SCH ×2 (10:19→22:09)
[2021-12-07] MEDS: CYANOCOBALAMIN 1,000 MCG TABLET (FP) PO SCH ×2 (10:19→22:09)
[2021-12-07] MEDS: CHOLECALCIFEROL (VIT D3) 1,000 UNIT (25 MCG) TABLET PO SCH ×2 (10:25→22:09)
[2021-12-07 10:46] LABS: ANISOCYTOSIS 1+; MACROCYTOSIS 0
[2021-12-07] MEDS: ATORVASTATIN CA 20 MG TABLET (FP) PO SCH (22:09)
[2021-12-08] MEDS: LEVOTHYROXINE NA 125 MCG TABLET (FP) PO SCH (06:32)
[2021-12-08 08:46] LABS: BASO % 0.4 % (0-2.0); EOS % 1.1 % (0-4.5); HEMATOCRIT 24.6 % (35.4-49); HEMOGLOBIN 8.3 GM/dL (11.7-16.9); LYMPH % 21.5 % (8-40); MCHC 33.6 g/dl (32.0-35.9); MEAN CELL VOLUME 92.2 fl (80-96); MEAN PLT VOLUME 9.5 fl (7.5-11.1); PLATELET COUNT 42 10^3/uL (134-434); RBC 2.67 M/mm3 (4.00-5.60); RDW 26.4 % (11.9-15.9); WHITE BLOOD COUNT 2.2 K/mm3 (4.0-10.0)
[2021-12-08 09:02] LABS: ALBUMIN 2.2 g/dl (3.4-5.0); BLOOD UREA NITROGEN 22.8 mg/dL (7-18)
[2021-12-08 09:06] LABS: BILIRUBIN,TOTAL 0.8 mg/dL (0.2-1); TOT PROT 4.9 g/dl (6.4-8.2)
[2021-12-08] MEDS ORDERED: FUROSEMIDE 40 MG TABLET (FP) PO SCH (10:00)
[2021-12-08] MEDS: CYANOCOBALAMIN 1,000 MCG TABLET (FP) PO SCH ×2 (10:47→21:38)
[2021-12-08] MEDS: FAMOTIDINE 40 MG/5 ML ORAL SUSPENSION PO SCH (10:47)
[2021-12-08] MEDS: MULTIVITAMINS (DAILY MVI) TABLET (FP) PO SCH (10:47)
[2021-12-08] MEDS: ASCORBIC ACID 500 MG TABLET (FP) PO SCH ×2 (10:47→21:38)
[2021-12-08] MEDS: CHOLECALCIFEROL (VIT D3) 1,000 UNIT (25 MCG) TABLET PO SCH ×2 (10:47→21:38)
[2021-12-08] MEDS: metoPROLOL SUCCINATE 25 MG TAB.SR.24H (FP) PO SCH (10:54)
[2021-12-08] MEDS: ATORVASTATIN CA 20 MG TABLET (FP) PO SCH (21:38)
[2021-12-09] MEDS: LEVOTHYROXINE NA 125 MCG TABLET (FP) PO SCH (06:16)
[2021-12-09 08:11] LABS: BASO % 0.6 % (0-2.0); EOS % 1.3 % (0-4.5); HEMATOCRIT 26.9 % (35.4-49); HEMOGLOBIN 8.8 GM/dL (11.7-16.9); LYMPH % 19.9 % (8-40); MCH 30.6 pg (25.7-33.7); MCHC 32.8 g/dl (32.0-35.9); MEAN CELL VOLUME 93.2 fl (80-96); MEAN PLT VOLUME 9.8 fl (7.5-11.1); MONO % 18.4 % (3.8-10.2); NEUT % 59.8 % (42.8-82.8); PLATELET COUNT 53 10^3/uL (134-434); RBC 2.89 M/mm3 (4.00-5.60); RDW 25.5 % (11.9-15.9); WHITE BLOOD COUNT 2.7 K/mm3 (4.0-10.0)
[2021-12-09 08:20] LABS: CALCIUM 8.1 mg/dL (8.5-10.1)
[2021-12-09 08:21] LABS: ALBUMIN 2.4 g/dl (3.4-5.0); BLOOD UREA NITROGEN 24.2 mg/dL (7-18)
[2021-12-09 08:24] LABS: CREATININE 0.9 mg/dL (0.55-1.3)
[2021-12-09 08:25] LABS: BILIRUBIN,TOTAL 0.7 mg/dL (0.2-1)
[2021-12-09 08:26] LABS: TOT PROT 5.4 g/dl (6.4-8.2)
[2021-12-09] MEDS: CYANOCOBALAMIN 1,000 MCG TABLET (FP) PO SCH ×2 (10:29→22:43)
[2021-12-09] MEDS: FAMOTIDINE 40 MG/5 ML ORAL SUSPENSION PO SCH (10:29)
[2021-12-09] MEDS: MULTIVITAMINS (DAILY MVI) TABLET (FP) PO SCH (10:29)
[2021-12-09] MEDS: FUROSEMIDE 40 MG TABLET (FP) PO SCH (10:29)
[2021-12-09] MEDS: ASCORBIC ACID 500 MG TABLET (FP) PO SCH ×2 (10:29→22:44)
[2021-12-09] MEDS: CHOLECALCIFEROL (VIT D3) 1,000 UNIT (25 MCG) TABLET PO SCH ×2 (10:32→22:46)
[2021-12-09] MEDS: metoPROLOL SUCCINATE 25 MG TAB.SR.24H (FP) PO SCH ×2 (10:32→22:44)
[2021-12-09] MEDS: ATORVASTATIN CA 20 MG TABLET (FP) PO SCH (22:43)
[2021-12-09] MEDS: MELATONIN 5 MG TABLETS PO PRN (22:44)
[2021-12-10] MEDS: LEVOTHYROXINE NA 125 MCG TABLET (FP) PO SCH (06:07)
[2021-12-10 10:26] LABS: CALCIUM 8.4 mg/dL (8.5-10.1)
[2021-12-10 10:27] LABS: ALBUMIN 2.6 g/dl (3.4-5.0); BLOOD UREA NITROGEN 20.6 mg/dL (7-18)
[2021-12-10 10:30] LABS: CREATININE 0.9 mg/dL (0.55-1.3); PHOSPHOROUS 2.5 mg/dL (2.5-4.9)
[2021-12-10 10:31] LABS: BILIRUBIN,TOTAL 0.8 mg/dL (0.2-1); TOT PROT 5.5 g/dl (6.4-8.2)
[2021-12-10 10:36] LABS: BASO % 0.7 % (0-2.0); EOS % 1.8 % (0-4.5); HEMATOCRIT 23.8 % (35.4-49); HEMOGLOBIN 7.9 GM/dL (11.7-16.9); LYMPH % 19.8 % (8-40); MCH 30.7 pg (25.7-33.7); MEAN CELL VOLUME 93.1 fl (80-96); MEAN PLT VOLUME 10.3 fl (7.5-11.1); MONO % 20.3 % (3.8-10.2); NEUT % 57.4 % (42.8-82.8); PLATELET COUNT 63 10^3/uL (134-434); RBC 2.56 M/mm3 (4.00-5.60); RDW 25.7 % (11.9-15.9); WHITE BLOOD COUNT 2.3 K/mm3 (4.0-10.0)
[2021-12-10] MEDS: metoPROLOL SUCCINATE 25 MG TAB.SR.24H (FP) PO SCH ×2 (10:41→22:00)
[2021-12-10] MEDS: ASCORBIC ACID 500 MG TABLET (FP) PO SCH ×2 (10:41→22:00)
[2021-12-10] MEDS: MULTIVITAMINS (DAILY MVI) TABLET (FP) PO SCH (10:41)
[2021-12-10] MEDS: CHOLECALCIFEROL (VIT D3) 1,000 UNIT (25 MCG) TABLET PO SCH ×2 (10:41→22:00)
[2021-12-10] MEDS: CYANOCOBALAMIN 1,000 MCG TABLET (FP) PO SCH ×2 (10:42→22:00)
[2021-12-10] MEDS: FUROSEMIDE 40 MG TABLET (FP) PO SCH (10:42)
[2021-12-10] MEDS: FAMOTIDINE 40 MG/5 ML ORAL SUSPENSION PO SCH (10:42)
[2021-12-10 11:46] LABS: ANISOCYTOSIS 2+; MACROCYTOSIS 1+
[2021-12-10] MEDS ORDERED: LORazepam 2 MG/ML SDV VIAL IVPUSH ONE (20:28)
[2021-12-10] MEDS ORDERED: HALOPERIDOL LACTATE 5 MG/ML IM PRN (20:28)
[2021-12-10] MEDS: ATORVASTATIN CA 20 MG TABLET (FP) PO SCH (22:00)
[2021-12-10] MEDS: APIXABAN 5 MG TABLET PO SCH (22:00)
[2021-12-11] MEDS ORDERED: ALBUTEROL SO4 0.083% IH SOL 2.5 MG/3 ML VIAL.NEB. NEB ONE ×2 (05:07→05:21)
[2021-12-11] MEDS: LEVOTHYROXINE NA 125 MCG TABLET (FP) PO SCH (06:18)
[2021-12-11 07:52] LABS: BLOOD UREA NITROGEN 21.8 mg/dL (7-18); CALCIUM 8.7 mg/dL (8.5-10.1)
[2021-12-11 07:56] LABS: CREATININE 0.9 mg/dL (0.55-1.3); PHOSPHOROUS 2.6 mg/dL (2.5-4.9)
[2021-12-11] MEDS: FUROSEMIDE 40 MG TABLET (FP) PO SCH (10:00)
[2021-12-11] MEDS: CHOLECALCIFEROL (VIT D3) 1,000 UNIT (25 MCG) TABLET PO SCH ×2 (10:00→22:00)
[2021-12-11] MEDS: ASCORBIC ACID 500 MG TABLET (FP) PO SCH ×2 (10:00→21:32)
[2021-12-11] MEDS: MULTIVITAMINS (DAILY MVI) TABLET (FP) PO SCH (10:00)
[2021-12-11] MEDS: APIXABAN 5 MG TABLET PO SCH ×2 (10:00→21:31)
[2021-12-11] MEDS: metoPROLOL SUCCINATE 25 MG TAB.SR.24H (FP) PO SCH ×2 (10:00→21:32)
[2021-12-11] MEDS: CYANOCOBALAMIN 1,000 MCG TABLET (FP) PO SCH ×2 (10:00→21:32)
[2021-12-11] MEDS: FAMOTIDINE 40 MG/5 ML ORAL SUSPENSION PO SCH (10:00)
[2021-12-11] MEDS: ATORVASTATIN CA 20 MG TABLET (FP) PO SCH (21:31)
[2021-12-11] MEDS: MELATONIN 5 MG TABLETS PO PRN (21:47)
[2021-12-11] MEDS ORDERED: HALOPERIDOL LACTATE 5 MG/ML IM PRN (22:00)
[2021-12-12] MEDS: LEVOTHYROXINE NA 125 MCG TABLET (FP) PO SCH (07:05)
[2021-12-12 08:21] LABS: BASO % 0.3 % (0-2.0); EOS % 0.8 % (0-4.5); HEMATOCRIT 22.7 % (35.4-49); HEMOGLOBIN 7.5 GM/dL (11.7-16.9); LYMPH % 7.2 % (8-40); MCH 30.4 pg (25.7-33.7); MCHC 33.3 g/dl (32.0-35.9); MEAN CELL VOLUME 91.5 fl (80-96); MEAN PLT VOLUME 8.9 fl (7.5-11.1); MONO % 17.3 % (3.8-10.2); NEUT % 74.4 % (42.8-82.8); PLATELET COUNT 71 10^3/uL (134-434); RBC 2.48 M/mm3 (4.00-5.60); RDW 25.7 % (11.9-15.9); WHITE BLOOD COUNT 3.7 K/mm3 (4.0-10.0)
[2021-12-12 08:41] LABS: CALCIUM 8.8 mg/dL (8.5-10.1)
[2021-12-12 08:42] LABS: ALBUMIN 2.7 g/dl (3.4-5.0); BLOOD UREA NITROGEN 20.7 mg/dL (7-18); MAGNESIUM 2.1 mg/dL (1.8-2.4)
[2021-12-12 08:45] LABS: CREATININE 0.8 mg/dL (0.55-1.3); PHOSPHOROUS 2.6 mg/dL (2.5-4.9)
[2021-12-12 08:46] LABS: BILIRUBIN,TOTAL 1.2 mg/dL (0.2-1)
[2021-12-12 08:47] LABS: TOT PROT 5.6 g/dl (6.4-8.2)
[2021-12-12 09:33] LABS: ANISOCYTOSIS 1+; MACROCYTOSIS 1+
[2021-12-12] MEDS: ASCORBIC ACID 500 MG TABLET (FP) PO SCH ×2 (09:49→21:50)
[2021-12-12] MEDS: APIXABAN 5 MG TABLET PO SCH ×2 (09:50→21:50)
[2021-12-12] MEDS: FUROSEMIDE 40 MG TABLET (FP) PO SCH (09:50)
[2021-12-12] MEDS: CHOLECALCIFEROL (VIT D3) 1,000 UNIT (25 MCG) TABLET PO SCH ×3 (09:50→21:50)
[2021-12-12] MEDS: metoPROLOL SUCCINATE 25 MG TAB.SR.24H (FP) PO SCH ×2 (09:50→21:51)
[2021-12-12] MEDS: MULTIVITAMINS (DAILY MVI) TABLET (FP) PO SCH (09:50)
[2021-12-12] MEDS: CYANOCOBALAMIN 1,000 MCG TABLET (FP) PO SCH ×2 (09:51→22:40)
[2021-12-12] MEDS: FAMOTIDINE 40 MG TABLET PO SCH (09:51)
[2021-12-12 09:54] LABS: PLATELET ESTIMATE DECREASED
[2021-12-12] MEDS ORDERED: SODIUM CHLORIDE 250 ML IV STA (19:23)
[2021-12-12] MEDS: ATORVASTATIN CA 20 MG TABLET (FP) PO SCH (21:50)
[2021-12-12] MEDS ORDERED: MIDODRINE HCL 5 MG TABLET PO STA (22:20)
[2021-12-12] MEDS ORDERED: FUROSEMIDE INJECTION 100 MG in SODIUM CHLORIDE 90 ML IVPB SCH (22:30)
[2021-12-13] MEDS: LEVOTHYROXINE NA 125 MCG TABLET (FP) PO SCH (06:50)
[2021-12-13 07:17] LABS: HEMATOCRIT 26.8 % (35.4-49); HEMOGLOBIN 9.3 GM/dL (11.7-16.9); MCH 31.7 pg (25.7-33.7); MCHC 34.6 g/dl (32.0-35.9); MEAN CELL VOLUME 91.5 fl (80-96); MEAN PLT VOLUME 9.1 fl (7.5-11.1); PLATELET COUNT 76 10^3/uL (134-434); RBC 2.93 M/mm3 (4.00-5.60); RDW 23.5 % (11.9-15.9); WHITE BLOOD COUNT 4.1 K/mm3 (4.0-10.0)
[2021-12-13 07:37] LABS: CALCIUM 8.5 mg/dL (8.5-10.1)
[2021-12-13 07:38] LABS: ALBUMIN 2.6 g/dl (3.4-5.0); MAGNESIUM 1.8 mg/dL (1.8-2.4)
[2021-12-13 07:41] LABS: PHOSPHOROUS 2.5 mg/dL (2.5-4.9)
[2021-12-13 07:42] LABS: BILIRUBIN,TOTAL 1.7 mg/dL (0.2-1); TOT PROT 5.6 g/dl (6.4-8.2)
[2021-12-13 07:46] LABS: N-TERMINAL BNP 2609.7 pg/ml (5-450)
[2021-12-13 08:58] LABS: ANISOCYTOSIS 1+; MACROCYTOSIS 1+
[2021-12-13] MEDS: CHOLECALCIFEROL (VIT D3) 1,000 UNIT (25 MCG) TABLET PO SCH ×2 (09:47→21:53)
[2021-12-13] MEDS: ASCORBIC ACID 500 MG TABLET (FP) PO SCH ×2 (11:09→21:39)
[2021-12-13] MEDS: MIDODRINE HCL 5 MG TABLET PO SCH ×3 (11:09→18:26)
[2021-12-13] MEDS: FAMOTIDINE 40 MG TABLET PO SCH (11:09)
[2021-12-13] MEDS: CYANOCOBALAMIN 1,000 MCG TABLET (FP) PO SCH ×2 (11:09→21:40)
[2021-12-13] MEDS: MULTIVITAMINS (DAILY MVI) TABLET (FP) PO SCH (11:09)
[2021-12-13] MEDS: APIXABAN 5 MG TABLET PO SCH ×2 (11:09→21:39)
[2021-12-13] MEDS ORDERED: NYSTATIN 500,000 UNITS/5 ML SUSPENSION PO ONE (15:11)
[2021-12-13] MEDS: FUROSEMIDE INJECTION 100 MG in SODIUM CHLORIDE 90 ML IVPB SCH (18:00)
[2021-12-13] MEDS: ATORVASTATIN CA 20 MG TABLET (FP) PO SCH (21:39)
[2021-12-13] MEDS: NYSTATIN 500,000 UNITS/5 ML SUSPENSION PO SCH (21:39)
[2021-12-14] MEDS: NYSTATIN 500,000 UNITS/5 ML SUSPENSION PO SCH ×5 (01:36→17:33)
[2021-12-14] MEDS: FUROSEMIDE INJECTION 100 MG in SODIUM CHLORIDE 90 ML IVPB SCH ×2 (06:41→18:04)
[2021-12-14] MEDS: LEVOTHYROXINE NA 125 MCG TABLET (FP) PO SCH (06:41)
[2021-12-14 07:51] LABS: CALCIUM 8.6 mg/dL (8.5-10.1)
[2021-12-14 07:52] LABS: ALBUMIN 2.8 g/dl (3.4-5.0); BLOOD UREA NITROGEN 25.3 mg/dL (7-18)
[2021-12-14 07:55] LABS: CREATININE 1.2 mg/dL (0.55-1.3)
[2021-12-14 07:57] LABS: TOT PROT 5.9 g/dl (6.4-8.2)
[2021-12-14 08:04] LABS: BASO % 0.6 % (0-2.0); EOS % 0.5 % (0-4.5); HEMATOCRIT 27.5 % (35.4-49); HEMOGLOBIN 9.4 GM/dL (11.7-16.9); LYMPH % 14.8 % (8-40); MCHC 34.2 g/dl (32.0-35.9); MEAN CELL VOLUME 90.6 fl (80-96); MEAN PLT VOLUME 9.9 fl (7.5-11.1); MONO % 19.4 % (3.8-10.2); NEUT % 64.7 % (42.8-82.8); PLATELET COUNT 88 10^3/uL (134-434); RBC 3.03 M/mm3 (4.00-5.60); WHITE BLOOD COUNT 3.5 K/mm3 (4.0-10.0)
[2021-12-14] MEDS: APIXABAN 5 MG TABLET PO SCH ×2 (09:28→21:41)
[2021-12-14] MEDS: ASCORBIC ACID 500 MG TABLET (FP) PO SCH ×2 (09:28→21:40)
[2021-12-14] MEDS: MULTIVITAMINS (DAILY MVI) TABLET (FP) PO SCH (09:28)
[2021-12-14] MEDS: FAMOTIDINE 40 MG TABLET PO SCH (09:28)
[2021-12-14] MEDS: MIDODRINE HCL 5 MG TABLET PO SCH ×3 (09:28→17:33)
[2021-12-14] MEDS: CYANOCOBALAMIN 1,000 MCG TABLET (FP) PO SCH ×2 (09:28→21:47)
[2021-12-14] MEDS: CHOLECALCIFEROL (VIT D3) 1,000 UNIT (25 MCG) TABLET PO SCH ×2 (12:51→21:41)
[2021-12-14] MEDS: ATORVASTATIN CA 20 MG TABLET (FP) PO SCH (21:41)
[2021-12-14] MEDS: MELATONIN 5 MG TABLETS PO PRN (21:46)
[2021-12-15] MEDS: NYSTATIN 500,000 UNITS/5 ML SUSPENSION PO SCH ×3 (06:38→17:43)
[2021-12-15] MEDS: LEVOTHYROXINE NA 125 MCG TABLET (FP) PO SCH (06:42)
[2021-12-15] MEDS: CYANOCOBALAMIN 1,000 MCG TABLET (FP) PO SCH ×2 (09:27→21:39)
[2021-12-15] MEDS: APIXABAN 5 MG TABLET PO SCH ×2 (09:27→21:39)
[2021-12-15] MEDS: MIDODRINE HCL 5 MG TABLET PO SCH ×3 (09:27→17:42)
[2021-12-15] MEDS: FAMOTIDINE 40 MG TABLET PO SCH (09:27)
[2021-12-15] MEDS: ASCORBIC ACID 500 MG TABLET (FP) PO SCH ×2 (09:27→21:39)
[2021-12-15] MEDS: MULTIVITAMINS (DAILY MVI) TABLET (FP) PO SCH (09:28)
[2021-12-15] MEDS: FUROSEMIDE INJECTION 100 MG in SODIUM CHLORIDE 90 ML IVPB SCH (09:29)
[2021-12-15] MEDS: CHOLECALCIFEROL (VIT D3) 1,000 UNIT (25 MCG) TABLET PO SCH ×2 (13:07→21:41)
[2021-12-15] MEDS: MELATONIN 5 MG TABLETS PO PRN (21:39)
[2021-12-15] MEDS: ATORVASTATIN CA 20 MG TABLET (FP) PO SCH (21:39)
[2021-12-16] MEDS: NYSTATIN 500,000 UNITS/5 ML SUSPENSION PO SCH ×4 (00:29→17:51)
[2021-12-16] MEDS: LEVOTHYROXINE NA 125 MCG TABLET (FP) PO SCH (06:22)
[2021-12-16] MEDS: CYANOCOBALAMIN 1,000 MCG TABLET (FP) PO SCH ×2 (09:33→22:57)
[2021-12-16] MEDS: MIDODRINE HCL 5 MG TABLET PO SCH ×3 (09:33→17:51)
[2021-12-16] MEDS: APIXABAN 5 MG TABLET PO SCH ×2 (09:33→22:57)
[2021-12-16] MEDS: ASCORBIC ACID 500 MG TABLET (FP) PO SCH ×2 (09:33→22:57)
[2021-12-16] MEDS: MULTIVITAMINS (DAILY MVI) TABLET (FP) PO SCH (09:33)
[2021-12-16] MEDS: FUROSEMIDE 40 MG TABLET (FP) PO SCH (09:36)
[2021-12-16] MEDS: FAMOTIDINE 40 MG TABLET PO SCH (09:36)
[2021-12-16] MEDS: CHOLECALCIFEROL (VIT D3) 1,000 UNIT (25 MCG) TABLET PO SCH ×2 (12:46→22:57)
[2021-12-16 15:09] LABS: BLOOD UREA NITROGEN 31.2 mg/dL (7-18); CALCIUM 8.4 mg/dL (8.5-10.1); MAGNESIUM 1.8 mg/dL (1.8-2.4)
[2021-12-16 15:10] LABS: ALBUMIN 2.7 g/dl (3.4-5.0)
[2021-12-16 15:12] LABS: CREATININE 1.5 mg/dL (0.55-1.3); PHOSPHOROUS 2.6 mg/dL (2.5-4.9)
[2021-12-16 15:13] LABS: BILIRUBIN,TOTAL 1.3 mg/dL (0.2-1)
[2021-12-16 15:14] LABS: TOT PROT 6.1 g/dl (6.4-8.2)
[2021-12-16] MEDS: ACETAMINOPHEN 325 MG TABLET (FP) PO PRN (22:55)
[2021-12-16] MEDS: ATORVASTATIN CA 20 MG TABLET (FP) PO SCH (22:57)
[2021-12-16 23:24] LABS: EPI CELLS 10 /uL (0-25.1); HYALINE CASTS 0 /uL (0-3.1); URINE APPEARANCE CLEAR; URINE BACTERIA 1899 /uL (0-1359); URINE BILIRUBIN NEGATIVE (NEGATIVE); URINE COLOR DK YELLOW; URINE GLUCOSE (UA) NEGATIVE (NEGATIVE); URINE KETONE NEGATIVE (NEGATIVE); URINE LEUK ESTERASE TRACE (NEGATIVE); URINE NITRITE NEGATIVE (NEGATIVE); URINE PROTEIN NEGATIVE (NEGATIVE); URINE RBC 21.1 /uL (0-23.9); URINE WBC 10 /uL (0-25.8)
[2021-12-17] MEDS: NYSTATIN 500,000 UNITS/5 ML SUSPENSION PO SCH ×5 (01:03→22:31)
[2021-12-17] MEDS: LEVOTHYROXINE NA 125 MCG TABLET (FP) PO SCH (06:00)
[2021-12-17 08:56] LABS: HEMATOCRIT 25.4 % (35.4-49); HEMOGLOBIN 8.4 GM/dL (11.7-16.9); MCH 30.3 pg (25.7-33.7); MEAN CELL VOLUME 91.8 fl (80-96); MEAN PLT VOLUME 9.5 fl (7.5-11.1); PLATELET COUNT 100 10^3/uL (134-434); RBC 2.77 M/mm3 (4.00-5.60); RDW 24.2 % (11.9-15.9); WHITE BLOOD COUNT 11.7 K/mm3 (4.0-10.0)
[2021-12-17 09:27] LABS: CALCIUM 8.5 mg/dL (8.5-10.1)
[2021-12-17 09:28] LABS: ALBUMIN 2.4 g/dl (3.4-5.0)
[2021-12-17 09:30] LABS: CREATININE 1.4 mg/dL (0.55-1.3); PHOSPHOROUS 2.9 mg/dL (2.5-4.9)
[2021-12-17 09:32] LABS: BILIRUBIN,TOTAL 1.6 mg/dL (0.2-1); TOT PROT 5.6 g/dl (6.4-8.2)
[2021-12-17 09:42] LABS: ANISOCYTOSIS 3+; MACROCYTOSIS 0
[2021-12-17] MEDS: FUROSEMIDE 40 MG TABLET (FP) PO SCH (10:00)
[2021-12-17] MEDS: APIXABAN 5 MG TABLET PO SCH ×2 (10:25→22:32)
[2021-12-17] MEDS: CYANOCOBALAMIN 1,000 MCG TABLET (FP) PO SCH ×2 (10:25→22:33)
[2021-12-17] MEDS: MIDODRINE HCL 5 MG TABLET PO SCH ×3 (10:25→18:06)
[2021-12-17] MEDS: ASCORBIC ACID 500 MG TABLET (FP) PO SCH ×2 (10:25→22:33)
[2021-12-17] MEDS: FAMOTIDINE 40 MG TABLET PO SCH (10:25)
[2021-12-17] MEDS: MULTIVITAMINS (DAILY MVI) TABLET (FP) PO SCH (10:25)
[2021-12-17] MEDS ORDERED: VANCOMYCIN 1 GM/200 ML PREMIX BAG IVPB ONE ×2 (12:15→18:00)
[2021-12-17 12:16] LABS: BILIRUBIN,DIRECT 0.6 mg/dL (0.0-0.2)
[2021-12-17 14:21] VITALS: BMI 13.1
[2021-12-17] MEDS: DOCUSATE SODIUM 100 MG CAPSULE (FP) PO SCH (15:09)
[2021-12-17] MEDS: POLYETHYLENE GLYCOL (HEALTHYLAX) 3350 17 GM PACKET PO SCH (15:10)
[2021-12-17] MEDS: CHOLECALCIFEROL (VIT D3) 1,000 UNIT (25 MCG) TABLET PO SCH ×2 (15:10→22:32)
[2021-12-17] MEDS: ACETAMINOPHEN 325 MG TABLET (FP) PO PRN (17:17)
[2021-12-17] MEDS: ATORVASTATIN CA 20 MG TABLET (FP) PO SCH (22:32)
[2021-12-17] MEDS: MELATONIN 5 MG TABLETS PO PRN (22:33)
[2021-12-18] MEDS: NYSTATIN 500,000 UNITS/5 ML SUSPENSION PO SCH ×4 (04:52→18:06)
[2021-12-18] MEDS: LEVOTHYROXINE NA 125 MCG TABLET (FP) PO SCH (06:44)
[2021-12-18 07:46] LABS: BASO % 0.1 % (0-2.0); HEMATOCRIT 24.8 % (35.4-49); HEMOGLOBIN 8.3 GM/dL (11.7-16.9); MCH 30.8 pg (25.7-33.7); MCHC 33.7 g/dl (32.0-35.9); MEAN CELL VOLUME 91.2 fl (80-96); MEAN PLT VOLUME 9.1 fl (7.5-11.1); NEUT % 88.9 % (42.8-82.8); PLATELET COUNT 96 10^3/uL (134-434); RBC 2.71 M/mm3 (4.00-5.60); RDW 25.5 % (11.9-15.9); WHITE BLOOD COUNT 11.6 K/mm3 (4.0-10.0)
[2021-12-18 08:01] LABS: CALCIUM 8.7 mg/dL (8.5-10.1)
[2021-12-18 08:02] LABS: ALBUMIN 2.4 g/dl (3.4-5.0); BLOOD UREA NITROGEN 45.1 mg/dL (7-18); MAGNESIUM 2.2 mg/dL (1.8-2.4)
[2021-12-18 08:05] LABS: CREATININE 1.5 mg/dL (0.55-1.3); PHOSPHOROUS 3.2 mg/dL (2.5-4.9)
[2021-12-18 08:06] LABS: BILIRUBIN,TOTAL 1.1 mg/dL (0.2-1); TOT PROT 5.7 g/dl (6.4-8.2)
[2021-12-18] MEDS: POLYETHYLENE GLYCOL (HEALTHYLAX) 3350 17 GM PACKET PO SCH (09:11)
[2021-12-18] MEDS: ASCORBIC ACID 500 MG TABLET (FP) PO SCH ×2 (09:11→21:11)
[2021-12-18] MEDS: MULTIVITAMINS (DAILY MVI) TABLET (FP) PO SCH (09:11)
[2021-12-18] MEDS: CYANOCOBALAMIN 1,000 MCG TABLET (FP) PO SCH ×2 (09:11→21:11)
[2021-12-18] MEDS: MIDODRINE HCL 5 MG TABLET PO SCH ×3 (09:11→18:06)
[2021-12-18] MEDS: FAMOTIDINE 40 MG TABLET PO SCH (09:11)
[2021-12-18] MEDS: APIXABAN 5 MG TABLET PO SCH ×2 (09:11→21:11)
[2021-12-18] MEDS: DOCUSATE SODIUM 100 MG CAPSULE (FP) PO SCH (09:11)
[2021-12-18] MEDS ORDERED: VANCOMYCIN 1 GM in D5W (PRE-DOCKED) 1,000 MG/250 ML IVPB SCH ×2 (10:00→15:00)
[2021-12-18] MEDS ORDERED: VANCOMYCIN 1 GM/200 ML PREMIX BAG IVPB ONE (11:30)
[2021-12-18] MEDS: FUROSEMIDE 40 MG TABLET (FP) PO SCH (12:09)
[2021-12-18] MEDS: CHOLECALCIFEROL (VIT D3) 1,000 UNIT (25 MCG) TABLET PO SCH ×2 (12:10→21:14)
[2021-12-18] MEDS: ATORVASTATIN CA 20 MG TABLET (FP) PO SCH (21:11)
[2021-12-19] MEDS: NYSTATIN 500,000 UNITS/5 ML SUSPENSION PO SCH ×4 (00:49→17:45)
[2021-12-19] MEDS: LEVOTHYROXINE NA 125 MCG TABLET (FP) PO SCH (06:05)
[2021-12-19 08:16] LABS: BASO % 0.2 % (0-2.0); HEMATOCRIT 21.9 % (35.4-49); HEMOGLOBIN 7.2 GM/dL (11.7-16.9); LYMPH % 2.7 % (8-40); MCHC 32.9 g/dl (32.0-35.9); MEAN CELL VOLUME 91.2 fl (80-96); MEAN PLT VOLUME 9.7 fl (7.5-11.1); MONO % 8.6 % (3.8-10.2); NEUT % 88.5 % (42.8-82.8); PLATELET COUNT 93 10^3/uL (134-434); RDW 24.9 % (11.9-15.9); WHITE BLOOD COUNT 12.6 K/mm3 (4.0-10.0)
[2021-12-19 09:48] LABS: BLOOD UREA NITROGEN 50.6 mg/dL (7-18); CALCIUM 8.9 mg/dL (8.5-10.1); MAGNESIUM 2.3 mg/dL (1.8-2.4)
[2021-12-19 09:51] LABS: PHOSPHOROUS 3.3 mg/dL (2.5-4.9)
[2021-12-19 09:52] LABS: CREATININE 1.4 mg/dL (0.55-1.3)
[2021-12-19 09:53] LABS: BILIRUBIN,TOTAL 0.9 mg/dL (0.2-1); TOT PROT 5.6 g/dl (6.4-8.2)
[2021-12-19 09:57] LABS: ALBUMIN 1.6 g/dl (3.4-5.0)
[2021-12-19] MEDS ORDERED: VANCOMYCIN/WATER FOR INJ (PEG) 1,000 MG/200 ML BAG IVPB SCH (11:00)
[2021-12-19] MEDS ORDERED: VANCOMYCIN 1,000 MG in DEXTROSE 5%-WATER - 250 ML IVPB SCH (11:00)
[2021-12-19] MEDS: POLYETHYLENE GLYCOL (HEALTHYLAX) 3350 17 GM PACKET PO SCH (11:07)
[2021-12-19] MEDS: MIDODRINE HCL 5 MG TABLET PO SCH ×3 (11:07→17:50)
[2021-12-19] MEDS: CYANOCOBALAMIN 1,000 MCG TABLET (FP) PO SCH ×2 (11:07→21:57)
[2021-12-19] MEDS: FAMOTIDINE 40 MG TABLET PO SCH (11:08)
[2021-12-19] MEDS: FUROSEMIDE 40 MG TABLET (FP) PO SCH (11:08)
[2021-12-19] MEDS: ASCORBIC ACID 500 MG TABLET (FP) PO SCH ×2 (11:08→21:57)
[2021-12-19] MEDS: MULTIVITAMINS (DAILY MVI) TABLET (FP) PO SCH (11:08)
[2021-12-19] MEDS: DOCUSATE SODIUM 100 MG CAPSULE (FP) PO SCH (11:08)
[2021-12-19] MEDS: CHOLECALCIFEROL (VIT D3) 1,000 UNIT (25 MCG) TABLET PO SCH ×2 (11:08→22:00)
[2021-12-19] MEDS: APIXABAN 5 MG TABLET PO SCH ×2 (11:08→21:57)
[2021-12-19] MEDS: NAFCILLIN - 2 GM in DEXTROSE 5%-WATER 100 ML IVPB SCH ×4 (13:50→21:57)
[2021-12-19] MEDS: ATORVASTATIN CA 20 MG TABLET (FP) PO SCH (21:57)
[2021-12-20] MEDS: NYSTATIN 500,000 UNITS/5 ML SUSPENSION PO SCH ×5 (00:35→23:09)
[2021-12-20] MEDS: NAFCILLIN - 2 GM in DEXTROSE 5%-WATER 100 ML IVPB SCH ×6 (02:47→21:58)
[2021-12-20] MEDS: LEVOTHYROXINE NA 125 MCG TABLET (FP) PO SCH (06:33)
[2021-12-20 07:54] LABS: HEMATOCRIT 23.9 % (35.4-49); HEMOGLOBIN 7.8 GM/dL (11.7-16.9); MCH 30.3 pg (25.7-33.7); MCHC 32.5 g/dl (32.0-35.9); MEAN CELL VOLUME 93.1 fl (80-96); MEAN PLT VOLUME 8.6 fl (7.5-11.1); RBC 2.57 M/mm3 (4.00-5.60); RDW 25.3 % (11.9-15.9)
[2021-12-20 08:04] LABS: PLATELET COUNT 120 10^3/uL (134-434); WHITE BLOOD COUNT 13.5 K/mm3 (4.0-10.0)
[2021-12-20 08:17] LABS: BLOOD UREA NITROGEN 56.4 mg/dL (7-18); CALCIUM 8.7 mg/dL (8.5-10.1); MAGNESIUM 2.6 mg/dL (1.8-2.4)
[2021-12-20 08:21] LABS: CREATININE 1.6 mg/dL (0.55-1.3); PHOSPHOROUS 4.1 mg/dL (2.5-4.9)
[2021-12-20 08:22] LABS: TOT PROT 5.8 g/dl (6.4-8.2)
[2021-12-20 08:23] LABS: BILIRUBIN,TOTAL 2.4 mg/dL (0.2-1)
[2021-12-20 08:27] LABS: ALBUMIN 2.4 g/dl (3.4-5.0)
[2021-12-20 08:58] LABS: ANISOCYTOSIS 2+; MACROCYTOSIS 1+; OVALOCYTE 1+; SICKELED CELLS 1+
[2021-12-20 09:30] LABS: PLATELET ESTIMATE DECREASED
[2021-12-20] MEDS: POLYETHYLENE GLYCOL (HEALTHYLAX) 3350 17 GM PACKET PO SCH (10:09)
[2021-12-20] MEDS: MULTIVITAMINS (DAILY MVI) TABLET (FP) PO SCH (10:09)
[2021-12-20] MEDS: ASCORBIC ACID 500 MG TABLET (FP) PO SCH ×2 (10:09→21:58)
[2021-12-20] MEDS: FUROSEMIDE 40 MG TABLET (FP) PO SCH (10:09)
[2021-12-20] MEDS: FAMOTIDINE 40 MG TABLET PO SCH (10:10)
[2021-12-20] MEDS: CYANOCOBALAMIN 1,000 MCG TABLET (FP) PO SCH ×2 (10:10→21:58)
[2021-12-20] MEDS: APIXABAN 2.5 MG TABLET PO SCH ×2 (10:10→21:58)
[2021-12-20] MEDS: DOCUSATE SODIUM 100 MG CAPSULE (FP) PO SCH (10:10)
[2021-12-20] MEDS: MIDODRINE HCL 5 MG TABLET PO SCH ×3 (10:11→18:44)
[2021-12-20] MEDS: CHOLECALCIFEROL (VIT D3) 1,000 UNIT (25 MCG) TABLET PO SCH ×2 (11:34→21:58)
[2021-12-20] MEDS ORDERED: SODIUM ZIRCONIUM CYCLOSILICATE (LOKELMA) 5 GM PACKET PO SCH (12:45)
[2021-12-20] MEDS: MELATONIN 5 MG TABLETS PO PRN (21:58)
[2021-12-20] MEDS: ATORVASTATIN CA 20 MG TABLET (FP) PO SCH (21:58)
[2021-12-21] MEDS: NAFCILLIN - 2 GM in DEXTROSE 5%-WATER 100 ML IVPB SCH ×6 (01:56→22:28)
[2021-12-21] MEDS ORDERED: ALBUTEROL SO4 2.5/IPRATROPIUM 0.5 INH SOL 3 ML VIAL.NEB. NEB ONE (03:59)
[2021-12-21] MEDS: LEVOTHYROXINE NA 125 MCG TABLET (FP) PO SCH (06:44)
[2021-12-21] MEDS: NYSTATIN 500,000 UNITS/5 ML SUSPENSION PO SCH ×3 (06:44→18:06)
[2021-12-21 07:05] LABS: BASO % 0.6 % (0-2.0); EOS % 0.6 % (0-4.5); HEMATOCRIT 23.4 % (35.4-49); HEMOGLOBIN 7.8 GM/dL (11.7-16.9); LYMPH % 5.1 % (8-40); MCH 30.6 pg (25.7-33.7); MCHC 33.3 g/dl (32.0-35.9); MEAN CELL VOLUME 91.9 fl (80-96); MEAN PLT VOLUME 9.8 fl (7.5-11.1); MONO % 14.7 % (3.8-10.2); PLATELET COUNT 91 10^3/uL (134-434); RBC 2.54 M/mm3 (4.00-5.60); RDW 24.4 % (11.9-15.9); WHITE BLOOD COUNT 5.8 K/mm3 (4.0-10.0)
[2021-12-21 07:20] LABS: CALCIUM 8.5 mg/dL (8.5-10.1)
[2021-12-21 07:21] LABS: ALBUMIN 2.2 g/dl (3.4-5.0); BLOOD UREA NITROGEN 62.4 mg/dL (7-18); MAGNESIUM 2.7 mg/dL (1.8-2.4)
[2021-12-21 07:25] LABS: PHOSPHOROUS 4.2 mg/dL (2.5-4.9)
[2021-12-21 07:27] LABS: BILIRUBIN,TOTAL 2.9 mg/dL (0.2-1); TOT PROT 5.4 g/dl (6.4-8.2)
[2021-12-21] MEDS: MIDODRINE HCL 5 MG TABLET PO SCH ×3 (10:04→18:06)
[2021-12-21] MEDS: FUROSEMIDE 40 MG TABLET (FP) PO SCH (10:04)
[2021-12-21] MEDS: CYANOCOBALAMIN 1,000 MCG TABLET (FP) PO SCH ×2 (10:05→22:28)
[2021-12-21] MEDS: ASCORBIC ACID 500 MG TABLET (FP) PO SCH ×2 (10:05→22:28)
[2021-12-21] MEDS: APIXABAN 2.5 MG TABLET PO SCH ×2 (10:05→22:28)
[2021-12-21] MEDS: MULTIVITAMINS (DAILY MVI) TABLET (FP) PO SCH (10:05)
[2021-12-21] MEDS: DOCUSATE SODIUM 100 MG CAPSULE (FP) PO SCH (10:05)
[2021-12-21] MEDS: POLYETHYLENE GLYCOL (HEALTHYLAX) 3350 17 GM PACKET PO SCH (10:05)
[2021-12-21] MEDS: FAMOTIDINE 40 MG TABLET PO SCH (10:06)
[2021-12-21 10:36] LABS: ANISOCYTOSIS 3+; MACROCYTOSIS 0
[2021-12-21] MEDS: CHOLECALCIFEROL (VIT D3) 1,000 UNIT (25 MCG) TABLET PO SCH ×2 (11:17→22:34)
[2021-12-21] MEDS ORDERED: SODIUM CHLORIDE 500 ML IV STA (12:35)
[2021-12-21] MEDS: MELATONIN 5 MG TABLETS PO PRN (22:27)
[2021-12-21] MEDS: ATORVASTATIN CA 20 MG TABLET (FP) PO SCH (22:27)
[2021-12-22] MEDS: NYSTATIN 500,000 UNITS/5 ML SUSPENSION PO SCH ×4 (00:13→18:32)
[2021-12-22] MEDS: NAFCILLIN - 2 GM in DEXTROSE 5%-WATER 100 ML IVPB SCH ×6 (02:36→22:15)
[2021-12-22] MEDS: LEVOTHYROXINE NA 125 MCG TABLET (FP) PO SCH (06:00)
[2021-12-22 08:35] LABS: BASO % 0.4 % (0-2.0); EOS % 0.5 % (0-4.5); HEMATOCRIT 20.6 % (35.4-49); LYMPH % 5.4 % (8-40); MCH 30.4 pg (25.7-33.7); MCHC 33.4 g/dl (32.0-35.9); MEAN CELL VOLUME 90.9 fl (80-96); MEAN PLT VOLUME 9.3 fl (7.5-11.1); MONO % 19.4 % (3.8-10.2); NEUT % 74.3 % (42.8-82.8); PLATELET COUNT 94 10^3/uL (134-434); RBC 2.27 M/mm3 (4.00-5.60); RDW 24.6 % (11.9-15.9); WHITE BLOOD COUNT 5.6 K/mm3 (4.0-10.0)
[2021-12-22 08:43] LABS: HEMOGLOBIN 6.9 GM/dL (11.7-16.9)
[2021-12-22 08:55] LABS: ALBUMIN 1.9 g/dl (3.4-5.0); BLOOD UREA NITROGEN 67.7 mg/dL (7-18); CALCIUM 8.1 mg/dL (8.5-10.1)
[2021-12-22 08:58] LABS: CREATININE 2.2 mg/dL (0.55-1.3)
[2021-12-22 09:00] LABS: BILIRUBIN,TOTAL 2.8 mg/dL (0.2-1); TOT PROT 5.4 g/dl (6.4-8.2)
[2021-12-22] MEDS: DOCUSATE SODIUM 100 MG CAPSULE (FP) PO SCH (09:23)
[2021-12-22] MEDS: ASCORBIC ACID 500 MG TABLET (FP) PO SCH ×2 (09:23→22:15)
[2021-12-22] MEDS: CYANOCOBALAMIN 1,000 MCG TABLET (FP) PO SCH ×2 (09:23→22:15)
[2021-12-22] MEDS: MULTIVITAMINS (DAILY MVI) TABLET (FP) PO SCH (09:23)
[2021-12-22] MEDS: MIDODRINE HCL 5 MG TABLET PO SCH ×3 (09:23→18:24)
[2021-12-22] MEDS: FAMOTIDINE 40 MG TABLET PO SCH (09:23)
[2021-12-22] MEDS: POLYETHYLENE GLYCOL (HEALTHYLAX) 3350 17 GM PACKET PO SCH (09:23)
[2021-12-22] MEDS: CHOLECALCIFEROL (VIT D3) 1,000 UNIT (25 MCG) TABLET PO SCH ×2 (11:44→22:16)
[2021-12-22] MEDS: ATORVASTATIN CA 20 MG TABLET (FP) PO SCH (22:14)
[2021-12-22] MEDS: MELATONIN 5 MG TABLETS PO PRN (22:36)
[2021-12-23] MEDS: NAFCILLIN - 2 GM in DEXTROSE 5%-WATER 100 ML IVPB SCH ×6 (01:12→21:05)
[2021-12-23] MEDS: NYSTATIN 500,000 UNITS/5 ML SUSPENSION PO SCH ×4 (01:12→17:16)
[2021-12-23] MEDS ORDERED: ALBUTEROL SO4 2.5/IPRATROPIUM 0.5 INH SOL 3 ML VIAL.NEB. NEB ONE (02:41)
[2021-12-23] MEDS: LEVOTHYROXINE NA 125 MCG TABLET (FP) PO SCH (06:24)
[2021-12-23] MEDS: CYANOCOBALAMIN 1,000 MCG TABLET (FP) PO SCH ×2 (09:51→21:05)
[2021-12-23] MEDS: MIDODRINE HCL 5 MG TABLET PO SCH ×4 (09:51→17:16)
[2021-12-23] MEDS: MULTIVITAMINS (DAILY MVI) TABLET (FP) PO SCH (09:51)
[2021-12-23] MEDS: ASCORBIC ACID 500 MG TABLET (FP) PO SCH ×2 (09:51→21:05)
[2021-12-23] MEDS: POLYETHYLENE GLYCOL (HEALTHYLAX) 3350 17 GM PACKET PO SCH (09:51)
[2021-12-23] MEDS: FAMOTIDINE 40 MG TABLET PO SCH (09:51)
[2021-12-23] MEDS: DOCUSATE SODIUM 100 MG CAPSULE (FP) PO SCH (09:52)
[2021-12-23] MEDS ORDERED: SODIUM CHLORIDE 1,000 ML IV SCH (11:00)
[2021-12-23] MEDS: CHOLECALCIFEROL (VIT D3) 1,000 UNIT (25 MCG) TABLET PO SCH ×2 (11:02→21:05)
[2021-12-23 14:55] LABS: BASO % 0.6 % (0-2.0); EOS % 1.2 % (0-4.5); HEMATOCRIT 27.6 % (35.4-49); HEMOGLOBIN 9.2 GM/dL (11.7-16.9); LYMPH % 7.1 % (8-40); MCH 29.1 pg (25.7-33.7); MCHC 33.4 g/dl (32.0-35.9); MEAN CELL VOLUME 87.2 fl (80-96); MEAN PLT VOLUME 9.9 fl (7.5-11.1); MONO % 24.7 % (3.8-10.2); NEUT % 66.4 % (42.8-82.8); PLATELET COUNT 90 10^3/uL (134-434); RBC 3.16 M/mm3 (4.00-5.60); RDW 23.5 % (11.9-15.9); WHITE BLOOD COUNT 3.7 K/mm3 (4.0-10.0)
[2021-12-23 15:06] LABS: URINE APPEARANCE CLEAR; URINE BILIRUBIN NEGATIVE (NEGATIVE); URINE COLOR YELLOW; URINE GLUCOSE (UA) NEGATIVE (NEGATIVE); URINE KETONE NEGATIVE (NEGATIVE); URINE LEUK ESTERASE NEGATIVE (NEGATIVE); URINE NITRITE NEGATIVE (NEGATIVE); URINE PROTEIN TRACE (NEGATIVE)
[2021-12-23 15:15] LABS: CALCIUM 8.4 mg/dL (8.5-10.1)
[2021-12-23 15:16] LABS: ALBUMIN 2.1 g/dl (3.4-5.0); BLOOD UREA NITROGEN 64.9 mg/dL (7-18); MAGNESIUM 2.9 mg/dL (1.8-2.4)
[2021-12-23 15:19] LABS: CREATININE 2.2 mg/dL (0.55-1.3); PHOSPHOROUS 3.5 mg/dL (2.5-4.9)
[2021-12-23 15:20] LABS: BILIRUBIN,TOTAL 2.8 mg/dL (0.2-1)
[2021-12-23 15:21] LABS: TOT PROT 6.1 g/dl (6.4-8.2)
[2021-12-23 15:41] LABS: ANISOCYTOSIS 0; MACROCYTOSIS 0
[2021-12-23] MEDS: ATORVASTATIN CA 20 MG TABLET (FP) PO SCH (21:05)
[2021-12-23] MEDS: MELATONIN 5 MG TABLETS PO PRN (21:05)
[2021-12-24] MEDS: NYSTATIN 500,000 UNITS/5 ML SUSPENSION PO SCH ×4 (01:08→17:10)
[2021-12-24] MEDS: NAFCILLIN - 2 GM in DEXTROSE 5%-WATER 100 ML IVPB SCH ×6 (02:19→21:46)
[2021-12-24] MEDS: LEVOTHYROXINE NA 125 MCG TABLET (FP) PO SCH (06:03)
[2021-12-24 08:11] LABS: CALCIUM 8.4 mg/dL (8.5-10.1)
[2021-12-24 08:12] LABS: ALBUMIN 1.8 g/dl (3.4-5.0)
[2021-12-24 08:17] LABS: BILIRUBIN,TOTAL 2.3 mg/dL (0.2-1); TOT PROT 5.4 g/dl (6.4-8.2)
[2021-12-24] MEDS: FAMOTIDINE 40 MG TABLET PO SCH (09:56)
[2021-12-24] MEDS: CYANOCOBALAMIN 1,000 MCG TABLET (FP) PO SCH ×2 (09:56→21:47)
[2021-12-24] MEDS: POLYETHYLENE GLYCOL (HEALTHYLAX) 3350 17 GM PACKET PO SCH (09:56)
[2021-12-24] MEDS: DOCUSATE SODIUM 100 MG CAPSULE (FP) PO SCH (09:56)
[2021-12-24] MEDS: MULTIVITAMINS (DAILY MVI) TABLET (FP) PO SCH (09:57)
[2021-12-24] MEDS: APIXABAN 2.5 MG TABLET PO SCH ×2 (09:57→21:47)
[2021-12-24] MEDS: ASCORBIC ACID 500 MG TABLET (FP) PO SCH ×2 (09:57→21:47)
[2021-12-24] MEDS: MIDODRINE HCL 5 MG TABLET PO SCH ×3 (10:38→17:10)
[2021-12-24] MEDS: CHOLECALCIFEROL (VIT D3) 1,000 UNIT (25 MCG) TABLET PO SCH ×2 (12:05→21:52)
[2021-12-24 15:27] LABS: HEMATOCRIT 31.3 % (35.4-49); HEMOGLOBIN 10.5 GM/dL (11.7-16.9); MCH 29.5 pg (25.7-33.7); MCHC 33.5 g/dl (32.0-35.9); MEAN CELL VOLUME 88.1 fl (80-96); MEAN PLT VOLUME 9.2 fl (7.5-11.1); PLATELET COUNT 108 10^3/uL (134-434); RBC 3.55 M/mm3 (4.00-5.60); RDW 23.7 % (11.9-15.9); WHITE BLOOD COUNT 2.5 K/mm3 (4.0-10.0)
[2021-12-24 15:56] LABS: CALCIUM 8.3 mg/dL (8.5-10.1)
[2021-12-24 15:57] LABS: BLOOD UREA NITROGEN 59.3 mg/dL (7-18); CREATININE 1.8 mg/dL (0.55-1.3)
[2021-12-24 16:03] LABS: PHOSPHOROUS 3.5 mg/dL (2.5-4.9)
[2021-12-24 16:04] LABS: BILIRUBIN,TOTAL 2.2 mg/dL (0.2-1)
[2021-12-24 16:05] LABS: ANISOCYTOSIS 2+; MACROCYTOSIS 0; OVALOCYTE 1+
[2021-12-24 16:08] LABS: TOT PROT 6.2 g/dl (6.4-8.2)
[2021-12-24] MEDS: ATORVASTATIN CA 20 MG TABLET (FP) PO SCH (21:52)
[2021-12-25] MEDS: NYSTATIN 500,000 UNITS/5 ML SUSPENSION PO SCH ×5 (00:57→23:48)
[2021-12-25] MEDS: MELATONIN 5 MG TABLETS PO PRN (00:57)
[2021-12-25] MEDS: NAFCILLIN - 2 GM in DEXTROSE 5%-WATER 100 ML IVPB SCH ×3 (02:50→10:58)
[2021-12-25] MEDS: LEVOTHYROXINE NA 125 MCG TABLET (FP) PO SCH (07:25)
[2021-12-25 08:22] LABS: HEMATOCRIT 26.7 % (35.4-49); MCH 29.5 pg (25.7-33.7); MCHC 33.6 g/dl (32.0-35.9); MEAN CELL VOLUME 87.7 fl (80-96); MEAN PLT VOLUME 9.5 fl (7.5-11.1); PLATELET COUNT 102 10^3/uL (134-434); RBC 3.04 M/mm3 (4.00-5.60); RDW 24.2 % (11.9-15.9); WHITE BLOOD COUNT 2.6 K/mm3 (4.0-10.0)
[2021-12-25 08:52] LABS: CALCIUM 8.2 mg/dL (8.5-10.1)
[2021-12-25 08:53] LABS: ALBUMIN 1.6 g/dl (3.4-5.0); BLOOD UREA NITROGEN 53.4 mg/dL (7-18); MAGNESIUM 2.8 mg/dL (1.8-2.4)
[2021-12-25 08:56] LABS: CREATININE 1.7 mg/dL (0.55-1.3); PHOSPHOROUS 3.3 mg/dL (2.5-4.9)
[2021-12-25 08:57] LABS: TOT PROT 5.2 g/dl (6.4-8.2)
[2021-12-25 08:58] LABS: BILIRUBIN,TOTAL 1.8 mg/dL (0.2-1)
[2021-12-25] MEDS: MIDODRINE HCL 5 MG TABLET PO SCH ×3 (10:57→18:33)
[2021-12-25] MEDS: APIXABAN 2.5 MG TABLET PO SCH ×2 (10:57→21:21)
[2021-12-25] MEDS: ASCORBIC ACID 500 MG TABLET (FP) PO SCH ×2 (10:57→21:21)
[2021-12-25] MEDS: FAMOTIDINE 40 MG TABLET PO SCH (10:58)
[2021-12-25] MEDS: POLYETHYLENE GLYCOL (HEALTHYLAX) 3350 17 GM PACKET PO SCH (10:58)
[2021-12-25] MEDS: MULTIVITAMINS (DAILY MVI) TABLET (FP) PO SCH (10:58)
[2021-12-25] MEDS: DOCUSATE SODIUM 100 MG CAPSULE (FP) PO SCH (10:58)
[2021-12-25] MEDS: CYANOCOBALAMIN 1,000 MCG TABLET (FP) PO SCH ×2 (10:58→21:21)
[2021-12-25] MEDS: CHOLECALCIFEROL (VIT D3) 1,000 UNIT (25 MCG) TABLET PO SCH ×2 (11:11→21:22)
[2021-12-25] MEDS: CEFAZOLIN SODIUM 2 GM in DEXTROSE 5%-WATER 100 ML IVPB SCH ×2 (12:10→18:33)
[2021-12-25] MEDS: ATORVASTATIN CA 20 MG TABLET (FP) PO SCH (21:21)
[2021-12-26] MEDS: CEFAZOLIN SODIUM 2 GM in DEXTROSE 5%-WATER 100 ML IVPB SCH ×3 (01:20→17:51)
[2021-12-26] MEDS: LEVOTHYROXINE NA 125 MCG TABLET (FP) PO SCH (06:33)
[2021-12-26] MEDS: NYSTATIN 500,000 UNITS/5 ML SUSPENSION PO SCH ×3 (06:33→17:51)
[2021-12-26] MEDS: APIXABAN 2.5 MG TABLET PO SCH ×2 (09:36→21:18)
[2021-12-26] MEDS: MIDODRINE HCL 5 MG TABLET PO SCH ×3 (09:36→17:51)
[2021-12-26] MEDS: ASCORBIC ACID 500 MG TABLET (FP) PO SCH ×2 (09:36→21:18)
[2021-12-26] MEDS: CYANOCOBALAMIN 1,000 MCG TABLET (FP) PO SCH ×2 (09:36→21:18)
[2021-12-26] MEDS: MULTIVITAMINS (DAILY MVI) TABLET (FP) PO SCH (09:36)
[2021-12-26] MEDS: POLYETHYLENE GLYCOL (HEALTHYLAX) 3350 17 GM PACKET PO SCH (09:37)
[2021-12-26] MEDS: FAMOTIDINE 40 MG TABLET PO SCH (09:37)
[2021-12-26] MEDS: DOCUSATE SODIUM 100 MG CAPSULE (FP) PO SCH (09:42)
[2021-12-26] MEDS: CHOLECALCIFEROL (VIT D3) 1,000 UNIT (25 MCG) TABLET PO SCH ×2 (11:29→21:45)
[2021-12-26] MEDS: ATORVASTATIN CA 20 MG TABLET (FP) PO SCH (21:18)
[2021-12-26] MEDS: MELATONIN 5 MG TABLETS PO PRN (21:18)
[2021-12-27] MEDS: NYSTATIN 500,000 UNITS/5 ML SUSPENSION PO SCH ×4 (01:16→18:49)
[2021-12-27] MEDS: CEFAZOLIN SODIUM 2 GM in DEXTROSE 5%-WATER 100 ML IVPB SCH ×3 (01:16→19:09)
[2021-12-27] MEDS: LEVOTHYROXINE NA 125 MCG TABLET (FP) PO SCH (06:22)
[2021-12-27] MEDS: MULTIVITAMINS (DAILY MVI) TABLET (FP) PO SCH (10:24)
[2021-12-27] MEDS: CYANOCOBALAMIN 1,000 MCG TABLET (FP) PO SCH ×2 (10:25→22:14)
[2021-12-27] MEDS: ASCORBIC ACID 500 MG TABLET (FP) PO SCH ×2 (10:26→22:14)
[2021-12-27] MEDS: APIXABAN 2.5 MG TABLET PO SCH ×2 (10:26→22:14)
[2021-12-27] MEDS: POLYETHYLENE GLYCOL (HEALTHYLAX) 3350 17 GM PACKET PO SCH (10:26)
[2021-12-27] MEDS: MIDODRINE HCL 5 MG TABLET PO SCH ×3 (10:27→19:09)
[2021-12-27] MEDS: FAMOTIDINE 40 MG TABLET PO SCH (10:37)
[2021-12-27] MEDS: CHOLECALCIFEROL (VIT D3) 1,000 UNIT (25 MCG) TABLET PO SCH ×2 (10:37→22:14)
[2021-12-27] MEDS: DOCUSATE SODIUM 100 MG CAPSULE (FP) PO SCH (10:43)
[2021-12-27] MEDS ORDERED: ALBUTEROL SO4 2.5/IPRATROPIUM 0.5 INH SOL 3 ML VIAL.NEB. NEB PRN (15:40)
[2021-12-27] MEDS: MELATONIN 5 MG TABLETS PO PRN (22:13)
[2021-12-27] MEDS: ATORVASTATIN CA 20 MG TABLET (FP) PO SCH (22:14)
[2021-12-28] MEDS: NYSTATIN 500,000 UNITS/5 ML SUSPENSION PO SCH ×4 (01:02→17:13)
[2021-12-28] MEDS: CEFAZOLIN SODIUM 2 GM in DEXTROSE 5%-WATER 100 ML IVPB SCH ×3 (01:02→17:12)
[2021-12-28] MEDS: LEVOTHYROXINE NA 125 MCG TABLET (FP) PO SCH (06:05)
[2021-12-28 08:42] LABS: HEMATOCRIT 25.3 % (35.4-49); HEMOGLOBIN 8.5 GM/dL (11.7-16.9); MCH 29.7 pg (25.7-33.7); MCHC 33.5 g/dl (32.0-35.9); MEAN CELL VOLUME 88.5 fl (80-96); PLATELET COUNT 98 10^3/uL (134-434); RBC 2.86 M/mm3 (4.00-5.60); RDW 24.1 % (11.9-15.9)
[2021-12-28 08:57] LABS: CHLORIDE 107 mmol/L (98-107); SODIUM 143 mmol/L (136-145)
[2021-12-28 09:00] LABS: ANION GAP 4 MMOL/L (8-16); BLOOD UREA NITROGEN 31.2 mg/dL (7-18); CALCIUM 8.5 mg/dL (8.5-10.1); CO2 32 mmol/L (21-32)
[2021-12-28 09:01] LABS: ALBUMIN 1.5 g/dl (3.4-5.0); GLUCOSE,RANDOM 85 mg/dL (74-106); MAGNESIUM 2.2 mg/dL (1.8-2.4); WHITE BLOOD COUNT 1.8 K/mm3 (4.0-10.0)
[2021-12-28 09:03] LABS: SGOT/AST 20 U/L (15-37); SGPT/ALT < 6 U/L (13-61)
[2021-12-28 09:04] LABS: CREATININE 1.2 mg/dL (0.55-1.3); PHOSPHOROUS 2.7 mg/dL (2.5-4.9)
[2021-12-28 09:05] LABS: BILIRUBIN,TOTAL 1.3 mg/dL (0.2-1); TOT PROT 5.2 g/dl (6.4-8.2)
[2021-12-28 09:06] LABS: ALK PHOS 73 U/L (45-117)
[2021-12-28] MEDS: APIXABAN 2.5 MG TABLET PO SCH ×2 (09:20→21:45)
[2021-12-28] MEDS: DOCUSATE SODIUM 100 MG CAPSULE (FP) PO SCH (09:20)
[2021-12-28] MEDS: MIDODRINE HCL 5 MG TABLET PO SCH ×3 (09:20→18:14)
[2021-12-28] MEDS: CYANOCOBALAMIN 1,000 MCG TABLET (FP) PO SCH ×2 (09:20→21:45)
[2021-12-28] MEDS: ASCORBIC ACID 500 MG TABLET (FP) PO SCH ×2 (09:20→21:45)
[2021-12-28] MEDS: MULTIVITAMINS (DAILY MVI) TABLET (FP) PO SCH (09:20)
[2021-12-28] MEDS: POLYETHYLENE GLYCOL (HEALTHYLAX) 3350 17 GM PACKET PO SCH (09:20)
[2021-12-28] MEDS ORDERED: CEFAZOLIN SODIUM 2 GM VIAL ONE ×2 (09:22→17:13)
[2021-12-28] MEDS: FAMOTIDINE 40 MG TABLET PO SCH (10:34)
[2021-12-28 11:32] LABS: ANISOCYTOSIS 2+; MACROCYTOSIS 0; OVALOCYTE 2+
[2021-12-28] MEDS: CHOLECALCIFEROL (VIT D3) 1,000 UNIT (25 MCG) TABLET PO SCH ×2 (12:46→21:45)
[2021-12-28] MEDS: ATORVASTATIN CA 20 MG TABLET (FP) PO SCH (21:45)
[2021-12-29] MEDS: NYSTATIN 500,000 UNITS/5 ML SUSPENSION PO SCH ×4 (00:14→17:59)
[2021-12-29] MEDS: CEFAZOLIN SODIUM 2 GM in DEXTROSE 5%-WATER 100 ML IVPB SCH ×3 (03:07→17:59)
[2021-12-29] MEDS ORDERED: SODIUM CHLORIDE 250 ML IV STA ×2 (06:17→11:52)
[2021-12-29] MEDS: LEVOTHYROXINE NA 125 MCG TABLET (FP) PO SCH (07:16)
[2021-12-29] MEDS: CYANOCOBALAMIN 1,000 MCG TABLET (FP) PO SCH ×2 (10:27→21:41)
[2021-12-29] MEDS: MULTIVITAMINS (DAILY MVI) TABLET (FP) PO SCH (10:27)
[2021-12-29] MEDS: APIXABAN 2.5 MG TABLET PO SCH ×2 (10:27→21:41)
[2021-12-29] MEDS: ASCORBIC ACID 500 MG TABLET (FP) PO SCH ×2 (10:27→21:41)
[2021-12-29] MEDS: MIDODRINE HCL 5 MG TABLET PO SCH ×3 (10:27→17:59)
[2021-12-29] MEDS: DOCUSATE SODIUM 100 MG CAPSULE (FP) PO SCH (10:27)
[2021-12-29] MEDS: POLYETHYLENE GLYCOL (HEALTHYLAX) 3350 17 GM PACKET PO SCH (10:27)
[2021-12-29] MEDS: FAMOTIDINE 40 MG TABLET PO SCH (10:28)
[2021-12-29] MEDS: CHOLECALCIFEROL (VIT D3) 1,000 UNIT (25 MCG) TABLET PO SCH ×2 (12:03→21:42)
[2021-12-29] MEDS: ATORVASTATIN CA 20 MG TABLET (FP) PO SCH (21:41)
[2021-12-30] MEDS: CEFAZOLIN SODIUM 2 GM in DEXTROSE 5%-WATER 100 ML IVPB SCH ×3 (01:01→18:08)
[2021-12-30] MEDS: NYSTATIN 500,000 UNITS/5 ML SUSPENSION PO SCH ×5 (01:01→23:12)
[2021-12-30] MEDS: LEVOTHYROXINE NA 125 MCG TABLET (FP) PO SCH (06:12)
[2021-12-30 09:03] LABS: HEMATOCRIT 20.5 % (35.4-49); MCH 29.9 pg (25.7-33.7); MCHC 33.5 g/dl (32.0-35.9); MEAN CELL VOLUME 89.5 fl (80-96); MEAN PLT VOLUME 8.7 fl (7.5-11.1); PLATELET COUNT 98 10^3/uL (134-434); RBC 2.29 M/mm3 (4.00-5.60); RDW 22.9 % (11.9-15.9)
[2021-12-30 09:14] LABS: CHLORIDE 109 mmol/L (98-107); SODIUM 143 mmol/L (136-145)
[2021-12-30 09:17] LABS: ALBUMIN 1.4 g/dl (3.4-5.0); CALCIUM 8.4 mg/dL (8.5-10.1)
[2021-12-30 09:18] LABS: ANION GAP 2 MMOL/L (8-16); BLOOD UREA NITROGEN 29.6 mg/dL (7-18); CO2 32 mmol/L (21-32); GLUCOSE,RANDOM 81 mg/dL (74-106)
[2021-12-30 09:21] LABS: CREATININE 1.1 mg/dL (0.55-1.3); SGPT/ALT < 6 U/L (13-61)
[2021-12-30 09:22] LABS: PHOSPHOROUS 2.4 mg/dL (2.5-4.9); SGOT/AST 18 U/L (15-37)
[2021-12-30 09:23] LABS: TOT PROT 5.3 g/dl (6.4-8.2); WHITE BLOOD COUNT 1.8 K/mm3 (4.0-10.0)
[2021-12-30 09:24] LABS: HEMOGLOBIN 6.9 GM/dL (11.7-16.9)
[2021-12-30 09:25] LABS: ALK PHOS 80 U/L (45-117)
[2021-12-30] MEDS: MIDODRINE HCL 5 MG TABLET PO SCH ×3 (09:25→18:12)
[2021-12-30] MEDS: POLYETHYLENE GLYCOL (HEALTHYLAX) 3350 17 GM PACKET PO SCH (09:25)
[2021-12-30] MEDS: ASCORBIC ACID 500 MG TABLET (FP) PO SCH ×2 (09:26→21:50)
[2021-12-30] MEDS: DOCUSATE SODIUM 100 MG CAPSULE (FP) PO SCH (09:26)
[2021-12-30] MEDS: MULTIVITAMINS (DAILY MVI) TABLET (FP) PO SCH (09:26)
[2021-12-30] MEDS: APIXABAN 2.5 MG TABLET PO SCH ×2 (09:26→21:50)
[2021-12-30] MEDS: CYANOCOBALAMIN 1,000 MCG TABLET (FP) PO SCH ×2 (09:26→21:50)
[2021-12-30] MEDS: FAMOTIDINE 40 MG TABLET PO SCH (09:26)
[2021-12-30 11:02] LABS: ANISOCYTOSIS 0; MACROCYTOSIS 0
[2021-12-30] MEDS ORDERED: NAPH,MB-DB/K PH,MBDB POWDER PACKET PO ONE (11:56)
[2021-12-30] MEDS: CHOLECALCIFEROL (VIT D3) 1,000 UNIT (25 MCG) TABLET PO SCH ×2 (12:34→21:50)
[2021-12-30 21:32] LABS: HEMATOCRIT 29.1 % (35.4-49); HEMOGLOBIN 9.4 GM/dL (11.7-16.9); MCH 29.9 pg (25.7-33.7); MCHC 32.4 g/dl (32.0-35.9); MEAN CELL VOLUME 92.4 fl (80-96); PLATELET COUNT 94 10^3/uL (134-434); RBC 3.15 M/mm3 (4.00-5.60); RDW 22.1 % (11.9-15.9); WHITE BLOOD COUNT 2.6 K/mm3 (4.0-10.0)
[2021-12-30] MEDS: ATORVASTATIN CA 20 MG TABLET (FP) PO SCH (21:50)
[2021-12-30] MEDS: MELATONIN 5 MG TABLETS PO PRN (21:50)
[2021-12-31] MEDS: CEFAZOLIN SODIUM 2 GM in DEXTROSE 5%-WATER 100 ML IVPB SCH ×3 (01:12→17:25)
[2021-12-31] MEDS: NYSTATIN 500,000 UNITS/5 ML SUSPENSION PO SCH ×3 (05:51→17:55)
[2021-12-31] MEDS: LEVOTHYROXINE NA 125 MCG TABLET (FP) PO SCH (06:00)
[2021-12-31 08:14] LABS: HEMATOCRIT 25.1 % (35.4-49); HEMOGLOBIN 8.4 GM/dL (11.7-16.9); MCH 30.2 pg (25.7-33.7); MCHC 33.4 g/dl (32.0-35.9); MEAN CELL VOLUME 90.5 fl (80-96); PLATELET COUNT 102 10^3/uL (134-434); RBC 2.78 M/mm3 (4.00-5.60); RDW 21.7 % (11.9-15.9); WHITE BLOOD COUNT 2.4 K/mm3 (4.0-10.0)
[2021-12-31 08:31] LABS: CALCIUM 8.7 mg/dL (8.5-10.1)
[2021-12-31 08:32] LABS: BLOOD UREA NITROGEN 28.5 mg/dL (7-18)
[2021-12-31 08:34] LABS: CREATININE 1.2 mg/dL (0.55-1.3)
[2021-12-31 08:35] LABS: PHOSPHOROUS 2.7 mg/dL (2.5-4.9)
[2021-12-31 08:36] LABS: BILIRUBIN,TOTAL 1.1 mg/dL (0.2-1); TOT PROT 6.3 g/dl (6.4-8.2)
[2021-12-31 08:41] LABS: ALBUMIN 1.8 g/dl (3.4-5.0)
[2021-12-31] MEDS: ASCORBIC ACID 500 MG TABLET (FP) PO SCH ×2 (09:15→21:46)
[2021-12-31] MEDS: MIDODRINE HCL 5 MG TABLET PO SCH ×3 (09:15→18:15)
[2021-12-31] MEDS: CYANOCOBALAMIN 1,000 MCG TABLET (FP) PO SCH ×2 (09:15→21:46)
[2021-12-31] MEDS: DOCUSATE SODIUM 100 MG CAPSULE (FP) PO SCH (09:15)
[2021-12-31] MEDS: APIXABAN 2.5 MG TABLET PO SCH ×2 (09:15→21:46)
[2021-12-31] MEDS: MULTIVITAMINS (DAILY MVI) TABLET (FP) PO SCH (09:15)
[2021-12-31] MEDS: POLYETHYLENE GLYCOL (HEALTHYLAX) 3350 17 GM PACKET PO SCH (09:17)
[2021-12-31] MEDS: FAMOTIDINE 40 MG TABLET PO SCH (09:49)
[2021-12-31] MEDS: CHOLECALCIFEROL (VIT D3) 1,000 UNIT (25 MCG) TABLET PO SCH ×2 (11:10→21:46)
[2021-12-31 12:52] LABS: ANISOCYTOSIS 0; MACROCYTOSIS 0
[2021-12-31] MEDS: SODIUM ZIRCONIUM CYCLOSILICATE (LOKELMA) 5 GM PACKET PO SCH (14:47)
[2021-12-31] MEDS: ATORVASTATIN CA 20 MG TABLET (FP) PO SCH (21:46)
[2021-12-31] MEDS: MELATONIN 5 MG TABLETS PO PRN (21:46)
[2022-01-01] MEDS: NYSTATIN 500,000 UNITS/5 ML SUSPENSION PO SCH ×4 (00:24→18:13)
[2022-01-01] MEDS: CEFAZOLIN SODIUM 2 GM in DEXTROSE 5%-WATER 100 ML IVPB SCH ×3 (00:59→18:13)
[2022-01-01] MEDS: LEVOTHYROXINE NA 125 MCG TABLET (FP) PO SCH (06:25)
[2022-01-01] MEDS: MIDODRINE HCL 5 MG TABLET PO SCH ×3 (10:28→18:37)
[2022-01-01] MEDS: SODIUM ZIRCONIUM CYCLOSILICATE (LOKELMA) 5 GM PACKET PO SCH (10:28)
[2022-01-01] MEDS: POLYETHYLENE GLYCOL (HEALTHYLAX) 3350 17 GM PACKET PO SCH (10:28)
[2022-01-01] MEDS: ASCORBIC ACID 500 MG TABLET (FP) PO SCH ×2 (10:29→22:04)
[2022-01-01] MEDS: CYANOCOBALAMIN 1,000 MCG TABLET (FP) PO SCH ×2 (10:29→22:04)
[2022-01-01] MEDS: MULTIVITAMINS (DAILY MVI) TABLET (FP) PO SCH (10:29)
[2022-01-01] MEDS: FAMOTIDINE 40 MG TABLET PO SCH (10:29)
[2022-01-01] MEDS: CHOLECALCIFEROL (VIT D3) 1,000 UNIT (25 MCG) TABLET PO SCH ×2 (10:31→22:04)
[2022-01-01] MEDS: DOCUSATE SODIUM 100 MG CAPSULE (FP) PO SCH (12:05)
[2022-01-01 12:28] LABS: HEMATOCRIT 24.8 % (35.4-49); HEMOGLOBIN 8.2 GM/dL (11.7-16.9); MCH 29.7 pg (25.7-33.7); MCHC 32.9 g/dl (32.0-35.9); MEAN CELL VOLUME 90.1 fl (80-96); MEAN PLT VOLUME 8.9 fl (7.5-11.1); PLATELET COUNT 106 10^3/uL (134-434); RBC 2.75 M/mm3 (4.00-5.60)
[2022-01-01 12:31] LABS: WHITE BLOOD COUNT 1.6 K/mm3 (4.0-10.0)
[2022-01-01 12:47] LABS: CHLORIDE 104 mmol/L (98-107); SODIUM 140 mmol/L (136-145)
[2022-01-01 12:50] LABS: ALBUMIN 1.8 g/dl (3.4-5.0); ANION GAP 2 MMOL/L (8-16); BLOOD UREA NITROGEN 24.6 mg/dL (7-18); CALCIUM 8.9 mg/dL (8.5-10.1); CO2 35 mmol/L (21-32); GLUCOSE,RANDOM 115 mg/dL (74-106)
[2022-01-01 12:53] LABS: PHOSPHOROUS 2.4 mg/dL (2.5-4.9)
[2022-01-01 12:54] LABS: SGOT/AST 24 U/L (15-37)
[2022-01-01 12:55] LABS: TOT PROT 6.7 g/dl (6.4-8.2)
[2022-01-01 12:56] LABS: ALK PHOS 117 U/L (45-117); SGPT/ALT < 6 U/L (13-61)
[2022-01-01 14:19] LABS: ANISOCYTOSIS 1+; MACROCYTOSIS 1+
[2022-01-01] MEDS: ATORVASTATIN CA 20 MG TABLET (FP) PO SCH (22:04)
[2022-01-01] MEDS: MELATONIN 5 MG TABLETS PO PRN (22:04)
[2022-01-02] MEDS: NYSTATIN 500,000 UNITS/5 ML SUSPENSION PO SCH ×4 (00:15→17:11)
[2022-01-02] MEDS: CEFAZOLIN SODIUM 2 GM in DEXTROSE 5%-WATER 100 ML IVPB SCH ×3 (02:51→17:11)
[2022-01-02] MEDS: LEVOTHYROXINE NA 125 MCG TABLET (FP) PO SCH (06:17)
[2022-01-02 08:05] LABS: RBC 2.55 M/mm3 (4.00-5.60)
[2022-01-02 08:07] LABS: CHLORIDE 106 mmol/L (98-107); SODIUM 138 mmol/L (136-145)
[2022-01-02 08:08] LABS: CALCIUM 8.4 mg/dL (8.5-10.1)
[2022-01-02 08:09] LABS: ALBUMIN 1.7 g/dl (3.4-5.0); ANION GAP 1 MMOL/L (8-16); BLOOD UREA NITROGEN 22.7 mg/dL (7-18); CO2 31 mmol/L (21-32); GLUCOSE,RANDOM 72 mg/dL (74-106)
[2022-01-02 08:12] LABS: CREATININE 0.9 mg/dL (0.55-1.3); MAGNESIUM 1.9 mg/dL (1.8-2.4)
[2022-01-02 08:13] LABS: PHOSPHOROUS 2.3 mg/dL (2.5-4.9); SGOT/AST 23 U/L (15-37)
[2022-01-02 08:14] LABS: BILIRUBIN,TOTAL 1.1 mg/dL (0.2-1); TOT PROT 6.2 g/dl (6.4-8.2)
[2022-01-02 08:15] LABS: ALK PHOS 110 U/L (45-117)
[2022-01-02 08:19] LABS: SGPT/ALT < 6 U/L (13-61)
[2022-01-02 08:33] LABS: HEMOGLOBIN 7.7 GM/dL (11.7-16.9); MCH 30.2 pg (25.7-33.7); MCHC 33.5 g/dl (32.0-35.9); MEAN PLT VOLUME 8.7 fl (7.5-11.1); PLATELET COUNT 105 10^3/uL (134-434); RDW 21.2 % (11.9-15.9)
[2022-01-02 09:03] LABS: WHITE BLOOD COUNT 1.7 K/mm3 (4.0-10.0)
[2022-01-02] MEDS: MIDODRINE HCL 5 MG TABLET PO SCH ×3 (09:29→18:06)
[2022-01-02] MEDS: CYANOCOBALAMIN 1,000 MCG TABLET (FP) PO SCH ×2 (09:29→22:27)
[2022-01-02] MEDS: MULTIVITAMINS (DAILY MVI) TABLET (FP) PO SCH (09:29)
[2022-01-02] MEDS: POLYETHYLENE GLYCOL (HEALTHYLAX) 3350 17 GM PACKET PO SCH (09:29)
[2022-01-02] MEDS: SODIUM ZIRCONIUM CYCLOSILICATE (LOKELMA) 5 GM PACKET PO SCH (09:29)
[2022-01-02] MEDS: DOCUSATE SODIUM 100 MG CAPSULE (FP) PO SCH (09:29)
[2022-01-02] MEDS: ASCORBIC ACID 500 MG TABLET (FP) PO SCH ×2 (09:29→22:27)
[2022-01-02] MEDS: FAMOTIDINE 40 MG TABLET PO SCH (09:29)
[2022-01-02 10:20] LABS: ANISOCYTOSIS 1+; MACROCYTOSIS 0
[2022-01-02] MEDS: CHOLECALCIFEROL (VIT D3) 1,000 UNIT (25 MCG) TABLET PO SCH ×2 (13:42→22:27)
[2022-01-02] MEDS ORDERED: SODIUM PHOSPHATE - 15 MM in DEXTROSE 5%-WATER - 250 ML IVPB ONE (17:00)
[2022-01-02] MEDS: ATORVASTATIN CA 20 MG TABLET (FP) PO SCH (22:27)
[2022-01-03] MEDS: NYSTATIN 500,000 UNITS/5 ML SUSPENSION PO SCH ×5 (00:11→23:55)
[2022-01-03] MEDS: CEFAZOLIN SODIUM 2 GM in DEXTROSE 5%-WATER 100 ML IVPB SCH ×3 (01:14→19:54)
[2022-01-03] MEDS: LEVOTHYROXINE NA 125 MCG TABLET (FP) PO SCH (06:30)
[2022-01-03 08:25] LABS: HEMATOCRIT 20.7 % (35.4-49); MCH 29.9 pg (25.7-33.7); MCHC 33.4 g/dl (32.0-35.9); MEAN CELL VOLUME 89.4 fl (80-96); MEAN PLT VOLUME 9.3 fl (7.5-11.1); PLATELET COUNT 103 10^3/uL (134-434); RBC 2.31 M/mm3 (4.00-5.60); RDW 20.8 % (11.9-15.9)
[2022-01-03 08:28] LABS: INR 1.2 (0.83-1.09); PROTHROMBIN TIME (PATIENT) 13.8 SEC (9.7-13.0)
[2022-01-03 08:33] LABS: WHITE BLOOD COUNT 1.3 K/mm3 (4.0-10.0)
[2022-01-03 08:34] LABS: HEMOGLOBIN 6.9 GM/dL (11.7-16.9)
[2022-01-03 08:35] LABS: CHLORIDE 104 mmol/L (98-107); SODIUM 139 mmol/L (136-145)
[2022-01-03 08:41] LABS: ALBUMIN 1.6 g/dl (3.4-5.0); ANION GAP 3 MMOL/L (8-16); CALCIUM 8.3 mg/dL (8.5-10.1); CO2 33 mmol/L (21-32); MAGNESIUM 1.9 mg/dL (1.8-2.4)
[2022-01-03 08:43] LABS: BLOOD UREA NITROGEN 23.8 mg/dL (7-18); GLUCOSE,RANDOM 71 mg/dL (74-106); PHOSPHOROUS 2.8 mg/dL (2.5-4.9)
[2022-01-03 08:45] LABS: CREATININE 0.9 mg/dL (0.55-1.3); SGOT/AST 22 U/L (15-37)
[2022-01-03 08:46] LABS: ALK PHOS 107 U/L (45-117); TOT PROT 5.9 g/dl (6.4-8.2)
[2022-01-03 08:55] LABS: SGPT/ALT < 6 U/L (13-61)
[2022-01-03] MEDS: MIDODRINE HCL 5 MG TABLET PO SCH ×3 (09:33→18:49)
[2022-01-03] MEDS ORDERED: MIDAZOLAM HCL 2 MG/2 ML SINGLE DOSE VIAL ONE (09:36)
[2022-01-03 10:30] LABS: ANISOCYTOSIS 1+; MACROCYTOSIS 1+
[2022-01-03] MEDS ORDERED: SODIUM CHLORIDE 500 ML IV ONE (10:45)
[2022-01-03] MEDS ORDERED: FENTANYL CITRATE/PF 50 MCG/ML VIAL IVPUSH ONE (11:00)
[2022-01-03] MEDS ORDERED: MIDAZOLAM HCL 2 MG/2 ML SINGLE DOSE VIAL IVPUSH ONE (11:00)
[2022-01-03] MEDS: DOCUSATE SODIUM 100 MG CAPSULE (FP) PO SCH (12:12)
[2022-01-03] MEDS: POLYETHYLENE GLYCOL (HEALTHYLAX) 3350 17 GM PACKET PO SCH (12:13)
[2022-01-03] MEDS: CYANOCOBALAMIN 1,000 MCG TABLET (FP) PO SCH ×2 (12:13→21:07)
[2022-01-03] MEDS: MULTIVITAMINS (DAILY MVI) TABLET (FP) PO SCH (12:13)
[2022-01-03] MEDS: SODIUM ZIRCONIUM CYCLOSILICATE (LOKELMA) 5 GM PACKET PO SCH (12:13)
[2022-01-03] MEDS: FAMOTIDINE 40 MG TABLET PO SCH (12:13)
[2022-01-03] MEDS: ASCORBIC ACID 500 MG TABLET (FP) PO SCH ×2 (12:14→21:07)
[2022-01-03] MEDS: CHOLECALCIFEROL (VIT D3) 1,000 UNIT (25 MCG) TABLET PO SCH ×2 (12:15→21:07)
[2022-01-03] MEDS: MELATONIN 5 MG TABLETS PO PRN (21:07)
[2022-01-03] MEDS: ATORVASTATIN CA 20 MG TABLET (FP) PO SCH (21:07)
[2022-01-04] MEDS: CEFAZOLIN SODIUM 2 GM in DEXTROSE 5%-WATER 100 ML IVPB SCH ×3 (01:12→17:53)
[2022-01-04] MEDS: LEVOTHYROXINE NA 125 MCG TABLET (FP) PO SCH (06:09)
[2022-01-04] MEDS: NYSTATIN 500,000 UNITS/5 ML SUSPENSION PO SCH ×3 (06:09→17:54)
[2022-01-04] MEDS ORDERED: ALBUTEROL SO4 2.5/IPRATROPIUM 0.5 INH SOL 3 ML VIAL.NEB. NEB ONE (09:45)
[2022-01-04] MEDS: SODIUM ZIRCONIUM CYCLOSILICATE (LOKELMA) 5 GM PACKET PO SCH ×2 (09:56→12:33)
[2022-01-04] MEDS: ASCORBIC ACID 500 MG TABLET (FP) PO SCH ×2 (09:57→21:38)
[2022-01-04] MEDS: FAMOTIDINE 40 MG TABLET PO SCH (09:57)
[2022-01-04] MEDS: MULTIVITAMINS (DAILY MVI) TABLET (FP) PO SCH (09:57)
[2022-01-04] MEDS: CYANOCOBALAMIN 1,000 MCG TABLET (FP) PO SCH ×2 (09:57→21:38)
[2022-01-04] MEDS: POLYETHYLENE GLYCOL (HEALTHYLAX) 3350 17 GM PACKET PO SCH (09:58)
[2022-01-04] MEDS: DOCUSATE SODIUM 100 MG CAPSULE (FP) PO SCH (09:58)
[2022-01-04] MEDS: MIDODRINE HCL 5 MG TABLET PO SCH ×3 (09:59→17:54)
[2022-01-04 10:29] LABS: HEMATOCRIT 26.8 % (35.4-49); HEMOGLOBIN 8.9 GM/dL (11.7-16.9); MCH 29.8 pg (25.7-33.7); MCHC 33.1 g/dl (32.0-35.9); MEAN CELL VOLUME 90.1 fl (80-96); MEAN PLT VOLUME 9.2 fl (7.5-11.1); PLATELET COUNT 109 10^3/uL (134-434); RBC 2.98 M/mm3 (4.00-5.60); RDW 18.9 % (11.9-15.9)
[2022-01-04 10:51] LABS: CALCIUM 8.9 mg/dL (8.5-10.1)
[2022-01-04 10:52] LABS: BLOOD UREA NITROGEN 21.1 mg/dL (7-18); MAGNESIUM 1.8 mg/dL (1.8-2.4)
[2022-01-04 10:55] LABS: CREATININE 0.9 mg/dL (0.55-1.3); PHOSPHOROUS 2.7 mg/dL (2.5-4.9)
[2022-01-04 10:56] LABS: WHITE BLOOD COUNT 1.2 K/mm3 (4.0-10.0)
[2022-01-04] MEDS: CHOLECALCIFEROL (VIT D3) 1,000 UNIT (25 MCG) TABLET PO SCH ×2 (12:37→21:38)
[2022-01-04] MEDS: ATORVASTATIN CA 20 MG TABLET (FP) PO SCH (21:38)
[2022-01-04] MEDS: APIXABAN 2.5 MG TABLET PO SCH (21:38)
[2022-01-04] MEDS: MELATONIN 5 MG TABLETS PO PRN (21:38)
[2022-01-05] MEDS: NYSTATIN 500,000 UNITS/5 ML SUSPENSION PO SCH ×5 (01:30→23:03)
[2022-01-05] MEDS: CEFAZOLIN SODIUM 2 GM in DEXTROSE 5%-WATER 100 ML IVPB SCH ×3 (01:45→17:40)
[2022-01-05] MEDS: LEVOTHYROXINE NA 125 MCG TABLET (FP) PO SCH (06:15)
[2022-01-05] MEDS: SODIUM ZIRCONIUM CYCLOSILICATE (LOKELMA) 5 GM PACKET PO SCH (09:20)
[2022-01-05] MEDS: APIXABAN 2.5 MG TABLET PO SCH ×2 (09:20→22:29)
[2022-01-05] MEDS: ASCORBIC ACID 500 MG TABLET (FP) PO SCH ×2 (09:20→22:29)
[2022-01-05] MEDS: DOCUSATE SODIUM 100 MG CAPSULE (FP) PO SCH (09:21)
[2022-01-05] MEDS: MIDODRINE HCL 5 MG TABLET PO SCH ×3 (09:21→17:46)
[2022-01-05] MEDS: CYANOCOBALAMIN 1,000 MCG TABLET (FP) PO SCH ×2 (09:21→22:28)
[2022-01-05] MEDS: POLYETHYLENE GLYCOL (HEALTHYLAX) 3350 17 GM PACKET PO SCH (09:21)
[2022-01-05] MEDS: MULTIVITAMINS (DAILY MVI) TABLET (FP) PO SCH (09:21)
[2022-01-05] MEDS: FAMOTIDINE 40 MG TABLET PO SCH (09:21)
[2022-01-05 09:23] LABS: CHLORIDE 101 mmol/L (98-107); SODIUM 140 mmol/L (136-145)
[2022-01-05 09:33] LABS: CALCIUM 8.6 mg/dL (8.5-10.1)
[2022-01-05 09:34] LABS: ALBUMIN 1.8 g/dl (3.4-5.0); ANION GAP 5 MMOL/L (8-16); BLOOD UREA NITROGEN 18.9 mg/dL (7-18); CO2 34 mmol/L (21-32); GLUCOSE,RANDOM 75 mg/dL (74-106)
[2022-01-05 09:37] LABS: CREATININE 0.9 mg/dL (0.55-1.3); SGOT/AST 27 U/L (15-37)
[2022-01-05 09:38] LABS: TOT PROT 6.7 g/dl (6.4-8.2)
[2022-01-05 09:39] LABS: ALK PHOS 123 U/L (45-117)
[2022-01-05 09:43] LABS: SGPT/ALT < 6 U/L (13-61)
[2022-01-05] MEDS: CHOLECALCIFEROL (VIT D3) 1,000 UNIT (25 MCG) TABLET PO SCH ×2 (12:15→22:28)
[2022-01-05] MEDS: metoPROLOL SUCCINATE 25 MG TAB.SR.24H (FP) PO SCH (22:28)
[2022-01-05] MEDS: MELATONIN 5 MG TABLETS PO PRN (22:28)
[2022-01-05] MEDS: ATORVASTATIN CA 20 MG TABLET (FP) PO SCH (22:29)
[2022-01-06] MEDS: CEFAZOLIN SODIUM 2 GM in DEXTROSE 5%-WATER 100 ML IVPB SCH ×3 (01:42→18:03)
[2022-01-06] MEDS: LEVOTHYROXINE NA 125 MCG TABLET (FP) PO SCH (06:10)
[2022-01-06] MEDS: NYSTATIN 500,000 UNITS/5 ML SUSPENSION PO SCH ×3 (06:10→18:03)
[2022-01-06 08:53] LABS: HEMATOCRIT 23.3 % (35.4-49); HEMOGLOBIN 7.7 GM/dL (11.7-16.9); MEAN PLT VOLUME 9.1 fl (7.5-11.1); PLATELET COUNT 87 10^3/uL (134-434); RBC 2.56 M/mm3 (4.00-5.60); RDW 19.9 % (11.9-15.9)
[2022-01-06 09:13] LABS: CHLORIDE 103 mmol/L (98-107); SODIUM 139 mmol/L (136-145)
[2022-01-06 09:17] LABS: ANION GAP 3 MMOL/L (8-16); BLOOD UREA NITROGEN 18.8 mg/dL (7-18); CALCIUM 8.5 mg/dL (8.5-10.1); CO2 33 mmol/L (21-32); GLUCOSE,RANDOM 72 mg/dL (74-106)
[2022-01-06] MEDS: MIDODRINE HCL 5 MG TABLET PO SCH ×3 (09:17→18:03)
[2022-01-06] MEDS: DOCUSATE SODIUM 100 MG CAPSULE (FP) PO SCH (09:17)
[2022-01-06] MEDS: metoPROLOL SUCCINATE 25 MG TAB.SR.24H (FP) PO SCH ×2 (09:17→21:05)
[2022-01-06 09:18] LABS: ALBUMIN 1.7 g/dl (3.4-5.0); MAGNESIUM 1.6 mg/dL (1.8-2.4)
[2022-01-06] MEDS: APIXABAN 2.5 MG TABLET PO SCH ×2 (09:18→21:05)
[2022-01-06] MEDS: CYANOCOBALAMIN 1,000 MCG TABLET (FP) PO SCH ×2 (09:18→21:06)
[2022-01-06] MEDS: ASCORBIC ACID 500 MG TABLET (FP) PO SCH ×2 (09:18→21:05)
[2022-01-06] MEDS: MULTIVITAMINS (DAILY MVI) TABLET (FP) PO SCH (09:18)
[2022-01-06 09:20] LABS: SGPT/ALT < 6 U/L (13-61)
[2022-01-06] MEDS: POLYETHYLENE GLYCOL (HEALTHYLAX) 3350 17 GM PACKET PO SCH (09:20)
[2022-01-06 09:21] LABS: CREATININE 0.9 mg/dL (0.55-1.3); SGOT/AST 24 U/L (15-37)
[2022-01-06] MEDS: FAMOTIDINE 40 MG TABLET PO SCH (09:21)
[2022-01-06 09:22] LABS: TOT PROT 6.2 g/dl (6.4-8.2)
[2022-01-06 09:23] LABS: ALK PHOS 112 U/L (45-117)
[2022-01-06 09:24] LABS: WHITE BLOOD COUNT 1.1 K/mm3 (4.0-10.0)
[2022-01-06 10:14] LABS: ANISOCYTOSIS 0; HELMET CELLS 0; HOWELL-JOLLY BODIES 0; MACROCYTOSIS 0; OVALOCYTE 0; ROULEAU 0; SICKELED CELLS 0; TARGET CELLS 0; TEAR DROP CELLS 0; TOXIC GRANULATION 0
[2022-01-06] MEDS ORDERED: MAGNESIUM OXIDE 400 MG TABLET (FP) PO ONE (10:46)
[2022-01-06] MEDS: CHOLECALCIFEROL (VIT D3) 1,000 UNIT (25 MCG) TABLET PO SCH ×2 (11:08→21:05)
[2022-01-06] MEDS: FUROSEMIDE 20 MG TABLET (FP) PO SCH (11:09)
[2022-01-06] MEDS ORDERED: MAGNESIUM 2GM/50ML STERILE WATER IVPB IVPB ONE (13:16)
[2022-01-06] MEDS: ATORVASTATIN CA 20 MG TABLET (FP) PO SCH (21:05)
[2022-01-06] MEDS: MELATONIN 5 MG TABLETS PO PRN (21:05)
[2022-01-07] MEDS: NYSTATIN 500,000 UNITS/5 ML SUSPENSION PO SCH ×5 (01:05→23:57)
[2022-01-07] MEDS: CEFAZOLIN SODIUM 2 GM in DEXTROSE 5%-WATER 100 ML IVPB SCH ×3 (01:05→17:58)
[2022-01-07] MEDS: LEVOTHYROXINE NA 125 MCG TABLET (FP) PO SCH (06:06)
[2022-01-07] MEDS: metoPROLOL SUCCINATE 25 MG TAB.SR.24H (FP) PO SCH ×2 (09:09→22:05)
[2022-01-07] MEDS: MIDODRINE HCL 5 MG TABLET PO SCH ×3 (09:09→18:35)
[2022-01-07] MEDS: ASCORBIC ACID 500 MG TABLET (FP) PO SCH ×2 (09:09→21:34)
[2022-01-07] MEDS: MULTIVITAMINS (DAILY MVI) TABLET (FP) PO SCH (09:10)
[2022-01-07] MEDS: POLYETHYLENE GLYCOL (HEALTHYLAX) 3350 17 GM PACKET PO SCH (09:10)
[2022-01-07] MEDS: APIXABAN 2.5 MG TABLET PO SCH ×2 (09:10→21:34)
[2022-01-07] MEDS: DOCUSATE SODIUM 100 MG CAPSULE (FP) PO SCH (09:11)
[2022-01-07] MEDS: FAMOTIDINE 40 MG TABLET PO SCH (09:11)
[2022-01-07] MEDS: CYANOCOBALAMIN 1,000 MCG TABLET (FP) PO SCH ×2 (09:16→21:34)
[2022-01-07 11:45] LABS: HEMATOCRIT 24.9 % (35.4-49); HEMOGLOBIN 8.3 GM/dL (11.7-16.9); MCH 30.1 pg (25.7-33.7); MCHC 33.2 g/dl (32.0-35.9); MEAN CELL VOLUME 90.7 fl (80-96); MEAN PLT VOLUME 9.2 fl (7.5-11.1); PLATELET COUNT 81 10^3/uL (134-434); RBC 2.75 M/mm3 (4.00-5.60); RDW 19.4 % (11.9-15.9)
[2022-01-07 11:47] LABS: WHITE BLOOD COUNT 1.1 K/mm3 (4.0-10.0)
[2022-01-07 12:05] LABS: CHLORIDE 100 mmol/L (98-107); SODIUM 138 mmol/L (136-145)
[2022-01-07 12:07] LABS: CALCIUM 8.6 mg/dL (8.5-10.1)
[2022-01-07 12:08] LABS: ALBUMIN 1.8 g/dl (3.4-5.0); ANION GAP 2 MMOL/L (8-16); CO2 35 mmol/L (21-32); GLUCOSE,RANDOM 105 mg/dL (74-106); MAGNESIUM 1.9 mg/dL (1.8-2.4)
[2022-01-07 12:09] LABS: BLOOD UREA NITROGEN 20.2 mg/dL (7-18)
[2022-01-07 12:11] LABS: PHOSPHOROUS 2.5 mg/dL (2.5-4.9); SGOT/AST 24 U/L (15-37); SGPT/ALT < 6 U/L (13-61)
[2022-01-07 12:12] LABS: BILIRUBIN,TOTAL 0.9 mg/dL (0.2-1)
[2022-01-07 12:13] LABS: TOT PROT 6.5 g/dl (6.4-8.2)
[2022-01-07 12:14] LABS: ALK PHOS 120 U/L (45-117)
[2022-01-07 12:44] LABS: ANISOCYTOSIS 0; MACROCYTOSIS 0
[2022-01-07] MEDS: CHOLECALCIFEROL (VIT D3) 1,000 UNIT (25 MCG) TABLET PO SCH ×2 (12:47→21:34)
[2022-01-07] MEDS: ATORVASTATIN CA 20 MG TABLET (FP) PO SCH (21:34)
[2022-01-07] MEDS ORDERED: ALBUTEROL SO4 2.5/IPRATROPIUM 0.5 INH SOL 3 ML VIAL.NEB. NEB ONE (22:39)
[2022-01-08] MEDS: CEFAZOLIN SODIUM 2 GM in DEXTROSE 5%-WATER 100 ML IVPB SCH ×3 (01:04→18:08)
[2022-01-08] MEDS ORDERED: ALBUTEROL SO4 2.5/IPRATROPIUM 0.5 INH SOL 3 ML VIAL.NEB. NEB ONE (06:28)
[2022-01-08] MEDS: NYSTATIN 500,000 UNITS/5 ML SUSPENSION PO SCH ×3 (06:43→18:08)
[2022-01-08] MEDS: LEVOTHYROXINE NA 125 MCG TABLET (FP) PO SCH (06:43)
[2022-01-08 07:15] LABS: HEMATOCRIT 23.5 % (35.4-49); HEMOGLOBIN 7.8 GM/dL (11.7-16.9); MCH 30.3 pg (25.7-33.7); MCHC 33.2 g/dl (32.0-35.9); MEAN CELL VOLUME 91.5 fl (80-96); MEAN PLT VOLUME 10.4 fl (7.5-11.1); PLATELET COUNT 81 10^3/uL (134-434); RBC 2.56 M/mm3 (4.00-5.60); RDW 19.3 % (11.9-15.9)
[2022-01-08 07:26] LABS: WHITE BLOOD COUNT 1.1 K/mm3 (4.0-10.0)
[2022-01-08 07:33] LABS: CHLORIDE 100 mmol/L (98-107); SODIUM 136 mmol/L (136-145)
[2022-01-08 07:39] LABS: ALBUMIN 1.8 g/dl (3.4-5.0); ANION GAP 2 MMOL/L (8-16); BLOOD UREA NITROGEN 22.7 mg/dL (7-18); CALCIUM 8.6 mg/dL (8.5-10.1); CO2 35 mmol/L (21-32); GLUCOSE,RANDOM 66 mg/dL (74-106)
[2022-01-08 07:42] LABS: CREATININE 0.9 mg/dL (0.55-1.3); SGOT/AST 26 U/L (15-37)
[2022-01-08 07:44] LABS: BILIRUBIN,TOTAL 0.8 mg/dL (0.2-1); TOT PROT 6.5 g/dl (6.4-8.2)
[2022-01-08 07:45] LABS: ALK PHOS 119 U/L (45-117)
[2022-01-08 07:57] LABS: SGPT/ALT < 6 U/L (13-61)
[2022-01-08 09:29] LABS: ANISOCYTOSIS 1+; ROULEAU 1+
[2022-01-08] MEDS: POLYETHYLENE GLYCOL (HEALTHYLAX) 3350 17 GM PACKET PO SCH (09:29)
[2022-01-08] MEDS: MIDODRINE HCL 5 MG TABLET PO SCH ×3 (09:29→18:08)
[2022-01-08] MEDS: APIXABAN 2.5 MG TABLET PO SCH ×2 (09:30→21:50)
[2022-01-08] MEDS: MULTIVITAMINS (DAILY MVI) TABLET (FP) PO SCH (09:30)
[2022-01-08] MEDS: ASCORBIC ACID 500 MG TABLET (FP) PO SCH ×2 (09:30→21:50)
[2022-01-08] MEDS: CYANOCOBALAMIN 1,000 MCG TABLET (FP) PO SCH ×2 (09:30→21:50)
[2022-01-08] MEDS: metoPROLOL SUCCINATE 25 MG TAB.SR.24H (FP) PO SCH ×2 (09:30→21:50)
[2022-01-08] MEDS: DOCUSATE SODIUM 100 MG CAPSULE (FP) PO SCH (09:31)
[2022-01-08] MEDS: FAMOTIDINE 40 MG TABLET PO SCH (10:30)
[2022-01-08] MEDS: CHOLECALCIFEROL (VIT D3) 1,000 UNIT (25 MCG) TABLET PO SCH ×2 (11:56→21:50)
[2022-01-08] MEDS: FUROSEMIDE 20 MG TABLET (FP) PO SCH (11:56)
[2022-01-08] MEDS: SODIUM ZIRCONIUM CYCLOSILICATE (LOKELMA) 5 GM PACKET PO SCH (13:29)
[2022-01-08] MEDS: ATORVASTATIN CA 20 MG TABLET (FP) PO SCH (21:50)
[2022-01-09] MEDS: NYSTATIN 500,000 UNITS/5 ML SUSPENSION PO SCH ×4 (00:20→17:04)
[2022-01-09] MEDS: CEFAZOLIN SODIUM 2 GM in DEXTROSE 5%-WATER 100 ML IVPB SCH ×3 (01:43→17:04)
[2022-01-09] MEDS: LEVOTHYROXINE NA 125 MCG TABLET (FP) PO SCH (06:36)
[2022-01-09 08:16] LABS: HEMATOCRIT 23.8 % (35.4-49); HEMOGLOBIN 7.9 GM/dL (11.7-16.9); MCH 30.4 pg (25.7-33.7); MCHC 33.3 g/dl (32.0-35.9); MEAN CELL VOLUME 91.5 fl (80-96); MEAN PLT VOLUME 9.3 fl (7.5-11.1); PLATELET COUNT 65 10^3/uL (134-434); RDW 19.3 % (11.9-15.9)
[2022-01-09 08:27] LABS: CHLORIDE 101 mmol/L (98-107); SODIUM 138 mmol/L (136-145)
[2022-01-09 08:35] LABS: SGPT/ALT < 6 U/L (13-61)
[2022-01-09 08:36] LABS: ALBUMIN 1.8 g/dl (3.4-5.0); BLOOD UREA NITROGEN 24.2 mg/dL (7-18); GLUCOSE,RANDOM 63 mg/dL (74-106); PHOSPHOROUS 2.3 mg/dL (2.5-4.9)
[2022-01-09 08:37] LABS: BILIRUBIN,TOTAL 0.8 mg/dL (0.2-1); TOT PROT 6.5 g/dl (6.4-8.2)
[2022-01-09 08:39] LABS: ALK PHOS 120 U/L (45-117); CREATININE 1.1 mg/dL (0.55-1.3); SGOT/AST 26 U/L (15-37)
[2022-01-09 08:40] LABS: CALCIUM 8.6 mg/dL (8.5-10.1)
[2022-01-09 08:41] LABS: ANION GAP 2 MMOL/L (8-16); CO2 35 mmol/L (21-32); MAGNESIUM 1.8 mg/dL (1.8-2.4)
[2022-01-09 09:17] LABS: ANISOCYTOSIS 1+; MACROCYTOSIS 0; PLATELET ESTIMATE DECREASED
[2022-01-09 09:25] LABS: WHITE BLOOD COUNT 1.1 K/mm3 (4.0-10.0)
[2022-01-09] MEDS: CYANOCOBALAMIN 1,000 MCG TABLET (FP) PO SCH ×2 (11:37→21:03)
[2022-01-09] MEDS: ASCORBIC ACID 500 MG TABLET (FP) PO SCH ×2 (11:37→21:01)
[2022-01-09] MEDS: MIDODRINE HCL 5 MG TABLET PO SCH ×3 (11:37→17:04)
[2022-01-09] MEDS: APIXABAN 2.5 MG TABLET PO SCH ×2 (11:38→21:02)
[2022-01-09] MEDS: POLYETHYLENE GLYCOL (HEALTHYLAX) 3350 17 GM PACKET PO SCH (11:38)
[2022-01-09] MEDS: DOCUSATE SODIUM 100 MG CAPSULE (FP) PO SCH (11:38)
[2022-01-09] MEDS: SODIUM ZIRCONIUM CYCLOSILICATE (LOKELMA) 5 GM PACKET PO SCH (11:38)
[2022-01-09] MEDS: FAMOTIDINE 40 MG TABLET PO SCH (11:38)
[2022-01-09] MEDS: MULTIVITAMINS (DAILY MVI) TABLET (FP) PO SCH (11:38)
[2022-01-09] MEDS: metoPROLOL SUCCINATE 25 MG TAB.SR.24H (FP) PO SCH ×2 (11:39→21:02)
[2022-01-09] MEDS: CHOLECALCIFEROL (VIT D3) 1,000 UNIT (25 MCG) TABLET PO SCH ×2 (12:09→21:01)
[2022-01-09] MEDS ORDERED: NAPH,MB-DB/K PH,MBDB POWDER PACKET PO ONE (12:33)
[2022-01-09] MEDS: ATORVASTATIN CA 20 MG TABLET (FP) PO SCH (21:02)
[2022-01-09] MEDS: MELATONIN 5 MG TABLETS PO PRN (21:02)
[2022-01-10] MEDS: NYSTATIN 500,000 UNITS/5 ML SUSPENSION PO SCH ×5 (01:19→23:10)
[2022-01-10] MEDS: CEFAZOLIN SODIUM 2 GM in DEXTROSE 5%-WATER 100 ML IVPB SCH ×3 (01:19→18:07)
[2022-01-10] MEDS: LEVOTHYROXINE NA 125 MCG TABLET (FP) PO SCH (06:25)
[2022-01-10 08:33] LABS: HEMATOCRIT 18.8 % (35.4-49); MCH 30.2 pg (25.7-33.7); MEAN CELL VOLUME 91.3 fl (80-96); MEAN PLT VOLUME 8.9 fl (7.5-11.1); PLATELET COUNT 62 10^3/uL (134-434); RBC 2.06 M/mm3 (4.00-5.60); RDW 20.6 % (11.9-15.9)
[2022-01-10 08:47] LABS: CHLORIDE 100 mmol/L (98-107); SODIUM 138 mmol/L (136-145)
[2022-01-10 08:53] LABS: ANION GAP 1 MMOL/L (8-16); BLOOD UREA NITROGEN 26.4 mg/dL (7-18); CO2 37 mmol/L (21-32); GLUCOSE,RANDOM 74 mg/dL (74-106); MAGNESIUM 1.8 mg/dL (1.8-2.4)
[2022-01-10 08:54] LABS: ALBUMIN 1.7 g/dl (3.4-5.0); CALCIUM 8.5 mg/dL (8.5-10.1)
[2022-01-10 08:56] LABS: CREATININE 0.9 mg/dL (0.55-1.3); HEMOGLOBIN 6.2 GM/dL (11.7-16.9); WHITE BLOOD COUNT 1.2 K/mm3 (4.0-10.0)
[2022-01-10 08:58] LABS: PHOSPHOROUS 2.3 mg/dL (2.5-4.9); SGOT/AST 26 U/L (15-37)
[2022-01-10 08:59] LABS: ALK PHOS 106 U/L (45-117); BILIRUBIN,TOTAL 0.8 mg/dL (0.2-1)
[2022-01-10 09:02] LABS: TOT PROT 5.8 g/dl (6.4-8.2)
[2022-01-10 09:05] LABS: SGPT/ALT < 6 U/L (13-61)
[2022-01-10] MEDS ORDERED: NAPH,MB-DB/K PH,MBDB POWDER PACKET PO ONE (09:13)
[2022-01-10] MEDS: POLYETHYLENE GLYCOL (HEALTHYLAX) 3350 17 GM PACKET PO SCH (09:39)
[2022-01-10] MEDS: MIDODRINE HCL 5 MG TABLET PO SCH ×3 (09:39→18:15)
[2022-01-10] MEDS: SODIUM ZIRCONIUM CYCLOSILICATE (LOKELMA) 5 GM PACKET PO SCH (09:39)
[2022-01-10] MEDS: ASCORBIC ACID 500 MG TABLET (FP) PO SCH ×2 (09:39→22:04)
[2022-01-10] MEDS: CYANOCOBALAMIN 1,000 MCG TABLET (FP) PO SCH ×2 (09:39→22:04)
[2022-01-10] MEDS: FAMOTIDINE 40 MG TABLET PO SCH (09:40)
[2022-01-10] MEDS: MULTIVITAMINS (DAILY MVI) TABLET (FP) PO SCH (09:40)
[2022-01-10] MEDS: APIXABAN 2.5 MG TABLET PO SCH ×2 (09:40→22:04)
[2022-01-10] MEDS: DOCUSATE SODIUM 100 MG CAPSULE (FP) PO SCH (12:28)
[2022-01-10] MEDS: metoPROLOL SUCCINATE 25 MG TAB.SR.24H (FP) PO SCH ×2 (12:30→22:02)
[2022-01-10] MEDS: FUROSEMIDE 20 MG TABLET (FP) PO SCH (12:32)
[2022-01-10] MEDS: CHOLECALCIFEROL (VIT D3) 1,000 UNIT (25 MCG) TABLET PO SCH ×2 (12:32→22:04)
[2022-01-10] MEDS ORDERED: FUROSEMIDE 40 MG/4 ML INJECTABLE VIAL IVPUSH ONE (14:00)
[2022-01-10] MEDS: ATORVASTATIN CA 20 MG TABLET (FP) PO SCH (22:04)
[2022-01-11] MEDS: CEFAZOLIN SODIUM 2 GM in DEXTROSE 5%-WATER 100 ML IVPB SCH ×2 (03:03→10:38)
[2022-01-11] MEDS: NYSTATIN 500,000 UNITS/5 ML SUSPENSION PO SCH (05:48)
[2022-01-11] MEDS: LEVOTHYROXINE NA 125 MCG TABLET (FP) PO SCH (06:02)
[2022-01-11 10:18] VITALS: BP 95/50; PULSE 72; RESP 18; TEMP 98.1
[2022-01-11] MEDS: SODIUM ZIRCONIUM CYCLOSILICATE (LOKELMA) 5 GM PACKET PO SCH (10:29)
[2022-01-11] MEDS: POLYETHYLENE GLYCOL (HEALTHYLAX) 3350 17 GM PACKET PO SCH (10:29)
[2022-01-11] MEDS: ASCORBIC ACID 500 MG TABLET (FP) PO SCH (10:30)
[2022-01-11] MEDS: MULTIVITAMINS (DAILY MVI) TABLET (FP) PO SCH (10:30)
[2022-01-11] MEDS: metoPROLOL SUCCINATE 25 MG TAB.SR.24H (FP) PO SCH (10:30)
[2022-01-11] MEDS: CYANOCOBALAMIN 1,000 MCG TABLET (FP) PO SCH (10:30)
[2022-01-11] MEDS: FAMOTIDINE 40 MG TABLET PO SCH (10:30)
[2022-01-11] MEDS: APIXABAN 2.5 MG TABLET PO SCH (10:30)
[2022-01-11] MEDS: MIDODRINE HCL 5 MG TABLET PO SCH (10:31)
[2022-01-11] MEDS: DOCUSATE SODIUM 100 MG CAPSULE (FP) PO SCH (10:31)
[2022-01-11] MEDS: CHOLECALCIFEROL (VIT D3) 1,000 UNIT (25 MCG) TABLET PO SCH (10:32)
[2022-01-11 10:33] LABS: HEMATOCRIT 26.5 % (35.4-49); HEMOGLOBIN 8.9 GM/dL (11.7-16.9); MCH 30.3 pg (25.7-33.7); MCHC 33.6 g/dl (32.0-35.9); MEAN PLT VOLUME 9.6 fl (7.5-11.1); PLATELET COUNT 69 10^3/uL (134-434); RBC 2.94 M/mm3 (4.00-5.60); RDW 17.2 % (11.9-15.9)
[2022-01-11 10:36] LABS: WHITE BLOOD COUNT 1.5 K/mm3 (4.0-10.0)
[2022-01-11 10:53] LABS: CHLORIDE 99 mmol/L (98-107); SODIUM 139 mmol/L (136-145)
[2022-01-11 10:57] LABS: CALCIUM 8.6 mg/dL (8.5-10.1)
[2022-01-11 10:58] LABS: ANION GAP 2 MMOL/L (8-16); BLOOD UREA NITROGEN 26.8 mg/dL (7-18); CO2 37 mmol/L (21-32); GLUCOSE,RANDOM 72 mg/dL (74-106); MAGNESIUM 1.9 mg/dL (1.8-2.4)
[2022-01-11 11:00] LABS: ALBUMIN 1.9 g/dl (3.4-5.0); PHOSPHOROUS 2.4 mg/dL (2.5-4.9); SGOT/AST 28 U/L (15-37)
[2022-01-11 11:02] LABS: BILIRUBIN,TOTAL 1.1 mg/dL (0.2-1); TOT PROT 6.7 g/dl (6.4-8.2)
[2022-01-11 11:03] LABS: ALK PHOS 121 U/L (45-117); SGPT/ALT < 6 U/L (13-61)
== END 2022-01-11 11:20 | disposition short-term general hospital (02) | DRG 291 ==
LOC: JER 12:22 → JERBED 15:31 → J4W 12-04 04:49 → J7W 12-11 18:31 → JICU 12-12 19:35 → J4W 12-14 20:40 → J4S 12-20 15:15
PROVIDERS: ADMIT Internal Medicine; ATTEND Internal Medicine
PROC: 30233N1 Transfusion of Nonautologous Red Blood Cells into Peripheral Vein, Percutaneous Approach (ICD-10-PCS; 2021-12-03)
PROC: 07DR3ZX Extraction of Iliac Bone Marrow, Percutaneous Approach, Diagnostic (ICD-10-PCS; principal; 2022-01-03)
DX: I13.0 Hypertensive heart and chronic kidney disease with heart failure and stage 1 through stage 4 chronic kidney disease, or unspecified chronic kidney disease (principal); A41.9 Sepsis, unspecified organism; I50.33 Acute on chronic diastolic (congestive) heart failure; J96.01 Acute respiratory failure with hypoxia; R64 Cachexia; Z68.1 Body mass index [BMI] 19.9 or less, adult; E87.3 Alkalosis; N17.9 Acute kidney failure, unspecified; B37.0 Candidal stomatitis; L03.113 Cellulitis of right upper limb; E87.21 Acute metabolic acidosis; N13.30 Unspecified hydronephrosis; D61.818 Other pancytopenia; I25.10 Atherosclerotic heart disease of native coronary artery without angina pectoris; I48.0 Paroxysmal atrial fibrillation; J44.9 Chronic obstructive pulmonary disease, unspecified; D46.9 Myelodysplastic syndrome, unspecified; I95.9 Hypotension, unspecified; R41.0 Disorientation, unspecified; D63.0 Anemia in neoplastic disease; Z93.0 Tracheostomy status; I27.20 Pulmonary hypertension, unspecified; Z95.5 Presence of coronary angioplasty implant and graft; D69.6 Thrombocytopenia, unspecified; E78.5 Hyperlipidemia, unspecified; E87.5 Hyperkalemia; N28.1 Cyst of kidney, acquired; K21.9 Gastro-esophageal reflux disease without esophagitis
CPT/HCPCS: 0241U-QW; 20225; 36415; 36430; 36600; 70450-TC; 71045-TC-FY; 71111-TC-FY; 71250-TC; 73030-TC-RT-FY; 76775-TC; 80048; 80053; 81003; 82248; 82436; 82533; 82570; 82607; 82668; 82746; 82803; 82962; 83605; 83615; 83735; 83880; 84100; 84133; 84300; 84439; 84443; 84484; 85025; 85027; 85610; 85730; 86480; 86850; 86900; 86901; 86922; 87040; 87070; 87086; 87186; 87205; 88300-TC; 93005; 93010; 93306-TC; 94640; 94761; 97116-GP; 97162-GP; 99291; C9803-CS; G0480; P9058; U0003; U0005